=== PATIENT | female | born 1995 | race Caucasian/White ===

== ENCOUNTER → 2016-12-21 | Outpatient (CLI) | payer BC ==
[2016-12-21 10:03] LABS: Partial Thromboplastin Time 25.7 sec (22.0-30.0); Prothrombin Time 10.2 sec (9.0-12.0)
[2016-12-21 10:11] LABS: Basophils # (A) 0.1 k/uL (0-0.2); Basophils % (A) 1 %; CH 30.6; CHCM 34.1; Eosinophils # (A) 0.4 k/uL (0-0.7); Eosinophils % (A) 7 %; HCT 42.2 % (34.0-46.0); HDW 2.38; Luc # (Auto) 0.16; Luc % (Auto) 3; Lymphocytes # (A) 1.9 k/uL (1.0-4.8); Lymphocytes % (A) 32 %; MCHC 33.2 g/dL (31.0-37.0); MCV 90.2 fL (80.0-100.0); Monocytes # (A) 0.4 k/uL (0-1.0); Monocytes % (A) 7 %; Neutrophils % (A) 51 %; RBC 4.68 m/uL (3.80-5.40); RDW 13.8 % (11.5-15.5); WBC 5.9 k/uL (3.8-10.6)
[2016-12-21 10:15] LABS: ALT 48 U/L (9-52); AST 26 U/L (14-36); Alkaline Phosphatase 81 U/L (38-126); Anion Gap 12 mmol/L; Blood Urea Nitrogen 12 mg/dL (7-17); Calcium 9.7 mg/dL (8.4-10.2); Carbon Dioxide 26 mmol/L (22-30); Chloride 105 mmol/L (98-107); Cholesterol 206 mg/dL (<200); Glucose 85 mg/dL (74-99); HDL Cholesterol 66 mg/dL (40-60); Non-African American GFR(MDRD) >60 (>60 ml/min/1.73 sqM); Potassium 4.4 mmol/L (3.5-5.1); Sodium 143 mmol/L (137-145); Total Bilirubin 0.7 mg/dL (0.2-1.3); Total Protein 7.6 g/dL (6.3-8.2); Triglycerides 99 mg/dL (<150)
== END | disposition home or self-care (01) ==
LOC: LABWHC1 09:30
PROVIDERS: ATTEND Internal Medicine
DX: E28.2 Polycystic ovarian syndrome (principal); R58 Hemorrhage, not elsewhere classified
CPT/HCPCS: 36415; 80053; 80061; 84443; 85025; 85610; 85730

== ENCOUNTER → 2017-06-07 | Outpatient (CLI) | payer BC ==
[2017-06-07 11:48] LABS: HCT 36.5 % (34.0-46.0); HGB 12.1 gm/dL (11.4-16.0); MCH 30.3 pg (25.0-35.0); MCHC 33.3 g/dL (31.0-37.0); MCV 91.2 fL (80.0-100.0); Mean Platelet Volume 7.8; Platelet Count 299 k/uL (150-450); RDW 13.7 % (11.5-15.5); WBC 10.5 k/uL (3.8-10.6)
== END | disposition home or self-care (01) ==
LOC: LABWHC1 10:37
PROVIDERS: ATTEND Obstetrics & Gynecology
DX: Z34.02 Encounter for supervision of normal first pregnancy, second trimester (principal); Z3A.00 Weeks of gestation of pregnancy not specified
CPT/HCPCS: 36415; 82950; 85027

== ENCOUNTER 2017-07-22 12:27 | Inpatient (IN) | payer BC ==
--- NOTE | 2017-07-22 12:56 | ED ---
General Adult HPI - General Chief complaint: Chest Pain Stated complaint: Chest Pain Time Seen by Provider: 07/22/17 12:30 Source: patient, family, RN notes reviewed Mode of arrival: wheelchair - History of Present Illness Initial comments: This is a 21-year-old female who presents to the emergency department 32 weeks . Patient comes in complaining that she has some chest pain since this morning and it is in the center of her sternum. Patient states she's been no injury. Patient does state it seems to be worse with palpation. Patient states she's had no injury has not lifted anything heavy recently. Patient denies any shortness of breath or difficulty breathing. Patient denies any abdominal pain patient denies any vaginal discharge or bleeding. Patient denies any recent fever chills or cough. Patient states the pain is been constant since this morning nothing seems to make it worse or better except for palpating the sternum. - Related Data Home Medications Medication Instructions Recorded Confirmed Albuterol Inhaler [Ventolin Hfa 2 puff INHALATION RT-Q6H PRN 10/03/15 07/22/17 Inhaler] Iff-Blmj-Marjm Acid 1 cap PO DAILY 07/22/17 07/22/17 [-U Capsule (formulary)] Allergies Allergy/AdvReac Type Severity Reaction Status Date / Time cefuroxime axetil Allergy Unknown Verified 07/22/17 12:57 [From Ceftin] Penicillins Allergy Rash/Hives Verified 07/22/17 12:57 red dye Allergy Rash/Hives Verified 07/22/17 12:57 sulfamethoxazole Allergy Rash/Hives Verified 07/22/17 12:57 [From Septra] trimethoprim [From Septra] Allergy Rash/Hives Verified 07/22/17 12:57 doxycycline AdvReac Nausea & Verified 07/22/17 12:57 Vomiting levofloxacin [From Levaquin] AdvReac Unknown Verified 07/22/17 12:57 Review of Systems ROS Statement: Those systems with pertinent positive or pertinent negative responses have been documented in the HPI. ROS Other: All systems not noted in ROS Statement are negative. Past Medical History Past Medical History: Asthma Additional Past Medical History / Comment(s): RECURRENT RUQ PAIN. OVARIAN CYST History of Any Multi-Drug Resistant Organisms: None Reported Past Surgical History: Ear Surgery Additional Past Surgical History / Comment(s): BMT Past Anesthesia/Blood Transfusion Reactions: No Reported Reaction Past Psychological History: No Psychological Hx Reported Smoking Status: Never smoker Past Alcohol Use History: None Reported Past Drug Use History: None Reported - Past Family History Mother Family Medical History: No Reported History General Exam - General Exam Comments Initial Comments: GENERAL: Patient is well-developed and well-nourished. Patient is nontoxic and well- hydrated and is in mild distress. ENT: Neck is soft and supple. No significant lymphadenopathy is noted. Oropharynx is clear. Moist mucous membranes. Neck has full range of motion without eliciting any pain. EYES: The sclera were anicteric and conjunctiva were pink and moist. Extraocular movements were intact and pupils were equal round and reactive to light. Eyelids were unremarkable. PULMONARY: Unlabored respirations. Good breath sounds bilaterally. No audible rales rhonchi or wheezing was noted. CARDIOVASCULAR: There is a regular rate and rhythm without any murmurs gallops or rubs. Chest pain is reproducible with palpation ABDOMEN: Patient's abdomen is nontender and it is consistent with a 32 week SKIN: Skin is clear with no lesions or rashes and otherwise unremarkable. NEUROLOGIC: Patient is alert and oriented x3. Cranial nerves II through XII are grossly intact. Motor and sensory are also intact. Normal speech, volume and content. Symmetrical smile. MUSCULOSKELETAL: Normal extremities with adequate strength and full range of motion. No lower extremity swelling or edema. No calf tenderness. LYMPHATICS: No significant lymphadenopathy is noted PSYCHIATRIC: Normal psychiatric evaluation. Course Vital Signs 07/22/17 07/22/17 07/22/17 12:28 13:02 15:12 Temperature 97.6 F 97.5 F L Pulse Rate 117 H 119 H 98 Respiratory 18 18 20 Rate Blood Pressure 128/84 125/63 113/71 O2 Sat by Pulse 97 97 98 Oximetry Medical Decision Making - Medical Decision Making Patient's EKG shows a sinus tachycardia at 118 bpm MI interval 132 QRS is 70 QT interval 326 QTC is 456. Patient's EKG does have a rightward shift. Patient has S1 Q3 T3 CT of the chest was unable to determine if there was a PE secondary to poor diet. Spoke with Dr. Franco she wanted the patient admitted to Dr. Dr. Murguia he agreed to admit the patient I admitted the patient I wrote admitting orders I started the patient heparin continued on the floor I consult to Dr. Nicole consult pulmonology. - Lab Data Result diagrams: 07/22/17 13:04 07/22/17 13:04 Lab Results 07/22/17 07/22/17 07/22/17 Range/Units 13:04 13:04 13:04 WBC 10.0 (3.8-10.6) k/uL RBC 4.06 (3.80-5.40) m/uL Hgb 11.9 (11.4-16.0) gm/dL Hct 35.2 (34.0-46.0) % MCV 86.7 (80.0-100.0) fL MCH 29.3 (25.0-35.0) pg MCHC 33.8 (31.0-37.0) g/dL RDW 12.5 (11.5-15.5) % Plt Count 369 (150-450) k/uL Neutrophils % 76 % Lymphocytes % 16 % Monocytes % 5 % Eosinophils % 2 % Basophils % 0 % Neutrophils # 7.6 (1.3-7.7) k/uL Lymphocytes # 1.6 (1.0-4.8) k/uL Monocytes # 0.5 (0-1.0) k/uL Eosinophils # 0.2 (0-0.7) k/uL Basophils # 0.0 (0-0.2) k/uL Poikilocytosis Slight D-Dimer 1.38 H (<0.60) mg/L FEU Sodium 139 (137-145) mmol/L Potassium 4.0 (3.5-5.1) mmol/L Chloride 108 H (98-107) mmol/L Carbon Dioxide 20 L (22-30) mmol/L Anion Gap 11 mmol/L BUN 6 L (7-17) mg/dL Creatinine 0.40 L (0.52-1.04) mg/dL Est GFR (MDRD) Af Amer >60 (>60 ml/min/1.73 sqM) Est GFR (MDRD) Non-Af >60 (>60 ml/min/1.73 sqM) Glucose 101 H (74-99) mg/dL Calcium 8.9 (8.4-10.2) mg/dL Total Bilirubin 0.3 (0.2-1.3) mg/dL AST 26 (14-36) U/L ALT 38 (9-52) U/L Alkaline Phosphatase 166 H (38-126) U/L Total Protein 6.4 (6.3-8.2) g/dL Albumin 3.4 L (3.5-5.0) g/dL Urine Color Urine Appearance (Clear) Urine pH (5.0-8.0) Ur Specific [place] (1.001-1.035) Urine Protein (Negative) Urine Glucose (UA) (Negative) Urine Ketones (Negative) Urine Blood (Negative) Urine Nitrite (Negative) Urine Bilirubin (Negative) Urine Urobilinogen (<2.0) mg/dL Ur Leukocyte Esterase (Negative) Urine RBC (0-5) /hpf Urine WBC (0-5) /hpf Ur Squamous Epith Cells (0-4) /hpf Urine Bacteria (None) /hpf Urine Mucus (None) /hpf 07/22/17 Range/Units 13:04 WBC (3.8-10.6) k/uL RBC (3.80-5.40) m/uL Hgb (11.4-16.0) gm/dL Hct (34.0-46.0) % MCV (80.0-100.0) fL MCH (25.0-35.0) pg MCHC (31.0-37.0) g/dL RDW (11.5-15.5) % Plt Count (150-450) k/uL Neutrophils % % Lymphocytes % % Monocytes % % Eosinophils % % Basophils % % Neutrophils # (1.3-7.7) k/uL Lymphocytes # (1.0-4.8) k/uL Monocytes # (0-1.0) k/uL Eosinophils # (0-0.7) k/uL Basophils # (0-0.2) k/uL Poikilocytosis D-Dimer (<0.60) mg/L FEU Sodium (137-145) mmol/L Potassium (3.5-5.1) mmol/L Chloride (98-107) mmol/L Carbon Dioxide (22-30) mmol/L Anion Gap mmol/L BUN (7-17) mg/dL Creatinine (0.52-1.04) mg/dL Est GFR (MDRD) Af Amer (>60 ml/min/1.73 sqM) Est GFR (MDRD) Non-Af (>60 ml/min/1.73 sqM) Glucose (74-99) mg/dL Calcium (8.4-10.2) mg/dL Total Bilirubin (0.2-1.3) mg/dL AST (14-36) U/L ALT (9-52) U/L Alkaline Phosphatase (38-126) U/L Total Protein (6.3-8.2) g/dL Albumin (3.5-5.0) g/dL Urine Color Yellow Urine Appearance Cloudy H (Clear) Urine pH 6.5 (5.0-8.0) Ur Specific [place] 1.016 (1.001-1.035) Urine Protein Trace H (Negative) Urine Glucose (UA) Negative (Negative) Urine Ketones Negative (Negative) Urine Blood Negative (Negative) Urine Nitrite Negative (Negative) Urine Bilirubin Negative (Negative) Urine Urobilinogen <2.0 (<2.0) mg/dL Ur Leukocyte Esterase Small H (Negative) Urine RBC 1 (0-5) /hpf Urine WBC 4 (0-5) /hpf Ur Squamous Epith Cells 25 H (0-4) /hpf Urine Bacteria Occasional H (None) /hpf Urine Mucus Many H (None) /hpf Critical Care Time Critical Care Time: Yes Total Critical Care Time: 35 Disposition Clinical Impression: Chest pain, 32 weeks gestation of Disposition: ADMITTED IP TO THIS HOSP Referrals: Jono Blunt MD [Primary Care Provider] - 1-2 days Time of Disposition: 16:47
[2017-07-22 13:24] LABS: Basophils % (A) 0 %; Eosinophils # (A) 0.2 k/uL (0-0.7); Eosinophils % (A) 2 %; HCT 35.2 % (34.0-46.0); HGB 11.9 gm/dL (11.4-16.0); Lymphocytes # (A) 1.6 k/uL (1.0-4.8); Lymphocytes % (A) 16 %; MCH 29.3 pg (25.0-35.0); MCHC 33.8 g/dL (31.0-37.0); MCV 86.7 fL (80.0-100.0); Mean Platelet Volume 7.3; Monocytes # (A) 0.5 k/uL (0-1.0); Monocytes % (A) 5 %; Neutrophils # (A) 7.6 k/uL (1.3-7.7); Neutrophils % (A) 76 %; Platelet Count 369 k/uL (150-450); Poikilocytosis Slight; RBC 4.06 m/uL (3.80-5.40); RDW 12.5 % (11.5-15.5)
[2017-07-22 13:34] LABS: ALT 38 U/L (9-52); AST 26 U/L (14-36); Albumin 3.4 g/dL (3.5-5.0); Alkaline Phosphatase 166 U/L (38-126); Anion Gap 11 mmol/L; Blood Urea Nitrogen 6 mg/dL (7-17); Calcium 8.9 mg/dL (8.4-10.2); Carbon Dioxide 20 mmol/L (22-30); Chloride 108 mmol/L (98-107); Glucose 101 mg/dL (74-99); Sodium 139 mmol/L (137-145); Total Bilirubin 0.3 mg/dL (0.2-1.3); Total Protein 6.4 g/dL (6.3-8.2)
[2017-07-22 13:45] LABS: Appearance,Urine Cloudy (Clear); Bacteria,Urine Occasional /hpf; Bilirubin,Urine Negative (Negative); Blood,Urine Negative (Negative); Color,Urine Yellow; Glucose,Urine (UA) Negative (Negative); Ketones,Urine Negative (Negative); Leukocyte Esterase,Urine Small (Negative); Mucus,Urine Many /hpf; PH, Urine 6.5 (5.0-8.0); Protein,Urine Trace (Negative); RBC,Urine 1 /hpf (0-5); Specific Gravity,Urine 1.016 (1.001-1.035); Squamous Epithelial Cell,Urine 25 /hpf (0-4); Urobilinogen,Urine <2.0 mg/dL (<2.0); WBC,Urine 4 /hpf (0-5)
[2017-07-22] MEDS ORDERED: RX INFO: IV CONTRAST WAS GIVEN 1 EACH MISC MISCELLANE PRN (14:08)
--- NOTE | 2017-07-22 15:12 | CT ---
EXAMINATION TYPE: CT chest angio for PE DATE OF EXAM: 07/22/2017 COMPARISON: NONE HISTORY: 21-year-old female with chest pain TECHNIQUE: Contiguous axial scanning of the chest performed with IV Contrast, patient injected with 1 00ml mL of Omnipaque 350. Coronal/sagittal MIP reconstructions performed. CT DLP: 395.4 mGycm Automated exposure control for dose reduction was used. FINDINGS: Heart is normal size without pericardial effusion. No reflux of contrast into the hepatic veins. Aorta is normal caliber. Some residual thymic tissue in the anterior mediastinum. No thoracic lymphadenopathy by CT size crite neto. Suboptimal opacification of the pulmonary arterial system. The degree of opacification is nondiagnost ic for assessment of pulmonary emboli. 4 mm triangular nodule peripheral right major fissure at the right mid to lower lung suggestive of a subpleural lymph node. No consolidation or pleural effusion. Shielding artifact in the upper abdomen. Bones: No osseous destructive process. IMPRESSION: UNFORTUNATELY, NONDIAGNOSTIC STUDY FOR ASSESSMENT OF PULMONARY EMBOLUS. NO ACUTE PULMONARY PROCESS.
[2017-07-22] MEDS ORDERED: HEPARIN SODIUM,PORCINE 10,000 UNIT/ML 1 ML VIAL IV ONE (16:47)
[2017-07-22] MEDS ORDERED: SODIUM CHLORIDE 0.9% 1,000 ML IV ONE (16:48)
[2017-07-22] MEDS: HEPARIN SOD,PORK IN 0.45% NACL 25,000 UNIT in 0.45% NACL 1 500ML.BAG IV SCH (17:35)
[2017-07-22 18:32] VITALS: BMI 32.3
[2017-07-22] MEDS ORDERED: ALBUTEROL NEBULIZED 2.5 MG/3 ML INHALATION PRN (22:55)
--- NOTE | 2017-07-22 23:29 | HP ---
HISTORY AND PHYSICAL DATE OF ADMISSION: July 22, 2017. PRESENTING COMPLAINT: Short of breath. HISTORY OF PRESENTING COMPLAINT: This is a pleasant 21 -year-old patient of Dr. Blunt. The patient has had asthma as a child, but only really exercise induced, hard to use inhalers. The patient is now 32 weeks and for 1 week has noticed that the legs have been swelling up. She really has not been much short of breath, except she said her parents noted that she was getting more short of breath and decided to come into the ER. Denies any cough. No fever. Patient is a not a smoker. Denies any fever. In the ER, patient did get a CT scan of the chest, but the study was inadequate. The patient is put on IV heparin and admitted. Dr. Franco, the patient's director medical economics was consulted, so was Dr. Moya from Pulmonary. The patient is currently lying in bed, rather comfortable. REVIEW OF SYSTEMS: CONSTITUTIONAL: None. HEENT none. Respiratory as above. Cardiovascular none. Gastrointestinal none. Genitourinary: None. Musculoskeletal: None. Dermatological and hematologic, lymphatic none. Psychiatry none. Neurological none. PAST MEDICAL HISTORY: Past medical history of childhood asthma, ovarian cyst. PAST SURGICAL HISTORY: Cholecystectomy, ears surgery, wisdom teeth removed. SOCIAL HISTORY: The patient lives with her Tommy. Does not smoke or drink alcohol. Works as a of body shop. FAMILY HISTORY: Of hypertension, rheumatoid arthritis. Patient does not smoke or drink alcohol. Denies use of recreational drugs. HOME MEDICATIONS: multivitamins 1 capsule p.o. daily and Ventolin a inhaler p.r.n. ALLERGIES: TO CEFTIN, PENICILLIN, RED DYE, BACTRIM, DOXYCYCLINE, LEVAQUIN. PHYSICAL EXAMINATION: Vital signs on presentation: Temperature 97.6, pulse 117, respirations 18, blood pressure 120/84, pulse ox 97% on room air. General appearance: Well built BMI 32.3 lying in bed, comfortable. Eyes pupils equal. Conjunctivae normal. HEENT: External appearance of nose, ears normal. Oral cavity normal. Neck JVD not raised. Mass not palpable. Respiratory effort normal. Lungs are clear. Cardiovascular 1st and second sounds normal. Mild edema. Abdomen distended. No tenderness. Liver and spleen not palpable. examination not done. LYMPHATIC: No lymph palpable in lymph node palpable. PSYCHIATRY: Alert and oriented x3. Mood and affect normal. Neurological: Pupils equal. Cranial nerves grossly intact. Power and sensation grossly intact. INVESTIGATIONS: White count 10, hemoglobin 11.9, potassium 4, BUN 6, creatinine 0.40. Chest CTA is inadequate study but for that study did not report any PE. EKG shows sinus tachycardia. ASSESSMENT: 1. This is a patient who is 32 weeks with her 1st child presents with swelling in the lower extremity, some shortness of breath. The patient's D-dimer was 1.38. CT scan inconclusive, cannot rule out PE. Pulmonary was consulted. 2. IV heparin monitoring. 3. First of 32 weeks of age. PLAN: The patient is currently put on IV heparin. We will order a Doppler ultrasound of the thighs. Get opinion from Pulmonary. Care was discussed with the patient. Copy to Dr. Blunt. MMERICK / TY: [id number] /
[2017-07-23] MEDS ORDERED: HEPARIN SODIUM,PORCINE 5,000 UNIT/ML 1 ML VIAL IV PRN (01:21)
[2017-07-23] MEDS: HEPARIN SOD,PORK IN 0.45% NACL 25,000 UNIT in 0.45% NACL 1 500ML.BAG IV SCH ×2 (06:53→23:10)
--- NOTE | 2017-07-23 08:44 | US ---
EXAMINATION TYPE: US venous doppler duplex LE BI DATE OF EXAM: 07/23/2017 7:53 AM COMPARISON: CT CLINICAL HISTORY: r/o dvt. Pt states recent swelling and chest pain/ pt approx 32 weeks / cur rently on Heparin drip SIDE PERFORMED: Bilateral TECHNIQUE: The lower extremity deep venous system is examined utilizing real time linear array sonog baron with graded compression, doppler sonography and color-flow sonography. VESSELS IMAGED: External Iliac Vein (EIV) Common Femoral Vein Deep Femoral Vein Greater Saphenous Vein * Femoral Vein Popliteal Vein Small Saphenous Vein * Proximal Calf Veins (* superficial vessels) Right Leg: Negative for DVT Left Leg: Negative for DVT IMPRESSION: Grayscale, color doppler, spectral doppler imaging performed of the deep veins of the lo wer extremities. There is normal flow, compressibility, vascular waveforms. No evident deep venous thrombosis at or above the knees.
--- NOTE | 2017-07-23 08:54 | P.OBCN ---
History of Present Illness Consult date: 07/23/17 Requesting physician: Nadir Murguia Reason for consult: other ( complicated by possible pulmonary embolism) Chief complaint: Leg swelling and chest pressure History of present illness: This is a 21-year-old female 1 para 0 with an estimated date of confinement of 09/17/2017, estimated gestational age of 31-6/7 weeks, who presented to the emergency room yesterday complaining of swelling in her legs off and on for about a week. She stated that other people around her were telling her that she looked short of breath and that she looked like she was struggling to breathe. She didn't notice any shortness of breath herself. She did say that she felt like she had a pressure over her chest like a cat was sitting on her chest. She admits to good movement and denies any vaginal bleeding or cramping. Obstetrical history: . Review of Systems Constitutional: Denies chills, Denies fever Eyes: denies blurred vision, denies pain Cardiovascular: Reports chest pain (Pressure over her chest), Reports leg edema , Reports shortness of breath Respiratory: Denies cough Gastrointestinal: Denies abdominal pain, Denies diarrhea, Denies nausea, Denies vomiting Genitourinary: Reports , Denies pelvic pain Musculoskeletal: Reports low back pain (Occasional) Neurological: Denies numbness, Denies weakness Psychiatric: Denies anxiety, Denies depression Past Medical History Past Medical History: Asthma Additional Past Medical History / Comment(s): RECURRENT RUQ PAIN-resolved,hx of lap gabriela. OVARIAN CYST History of Any Multi-Drug Resistant Organisms: None Reported Past Surgical History: Cholecystectomy, Ear Surgery Additional Past Surgical History / Comment(s): wisdom teeth removed 2013 Past Anesthesia/Blood Transfusion Reactions: No Reported Reaction Past Psychological History: No Psychological Hx Reported Smoking Status: Never smoker Past Alcohol Use History: None Reported Past Drug Use History: None Reported - Past Family History Father Family Medical History: Diabetes Mellitus, Hyperlipidemia, Hypertension Mother Family Medical History: Hypertension, Rheumatoid Arthritis (RA) Medications and Allergies Home Medications Medication Instructions Recorded Confirmed Type Albuterol Inhaler [Ventolin Hfa 2 puff INHALATION RT-Q6H PRN 10/03/15 07/22/17 History Inhaler] Yuk-Srrr-Dcjti Acid 1 cap PO DAILY 07/22/17 07/22/17 History [-U Capsule (formulary)] Allergies Allergy/AdvReac Type Severity Reaction Status Date / Time cefuroxime axetil Allergy Unknown Verified 07/22/17 12:57 [From Ceftin] Penicillins Allergy Rash/Hives Verified 07/22/17 12:57 red dye Allergy Rash/Hives Verified 07/22/17 12:57 sulfamethoxazole Allergy Rash/Hives Verified 07/22/17 12:57 [From Septra] trimethoprim [From Septra] Allergy Rash/Hives Verified 07/22/17 12:57 doxycycline AdvReac Nausea & Verified 07/22/17 12:57 Vomiting levofloxacin [From Levaquin] AdvReac Unknown Verified 07/22/17 12:57 Exam Osteopathic Statement: *. No significant issues noted on an osteopathic structural exam other than those noted in the History and Physical/Consult. - Vital Signs Vital signs: Vital Signs Temp Pulse Pulse Resp BP BP Pulse Ox 07/23/17 04:00 98.2 F 81 18 110/69 100 07/23/17 00:10 98.1 F 76 17 107/55 100 07/22/17 20:10 97.7 F 92 18 108/67 100 07/22/17 18:30 98.1 F 104 H 16 125/90 97 07/22/17 17:27 98.4 F 67 16 104/64 98 07/22/17 15:12 98 20 113/71 98 07/22/17 13:02 97.5 F L 119 H 18 125/63 97 07/22/17 12:28 97.6 F 117 H 18 128/84 97 Intake and Output 07/22/17 07/23/17 07/23/17 22:59 06:59 14:59 Intake Total 180 538.208 9455 Output Total 250 400 300 Balance -70 53.726 1140 Intake: Intake, IV Titration 345.165 5031 Amount Heparin Sod,Pork in 0.45% 453.726 NaCl 25,000 unit In 0.45 % NaCl 1 500ml.bag @ 18 UNITS/KG/HR 32.65 mls/hr IV .[id number] [facility] Rx#: [id number] Sodium Chloride 0.9% 1, 1200 000 ml @ 100 mls/hr IV . Q10H ONE Rx#:[id number] Oral 180 240 Output: Urine 250 400 300 Other: Voiding Method Toilet Toilet # Voids 1 2 1 # Bowel Movements 1 Weight 90.7 kg 92.7 kg Gen.: Well-developed well-nourished gravid female in no acute distress HEENT: Within normal limits Lungs: Clear to auscultation bilaterally Abdomen: , nontender Extremities: Negative Homans and trace edema bilaterally. Results Result Diagrams: 07/22/17 13:04 07/22/17 13:04 Abnormal Lab Results - Last 24 Hours (Table) 07/22/17 07/22/17 07/22/17 Range/Units 13:04 13:04 13:04 APTT (22.0-30.0) sec D-Dimer 1.38 H (<0.60) mg/L FEU Chloride 108 H (98-107) mmol/L Carbon Dioxide 20 L (22-30) mmol/L BUN 6 L (7-17) mg/dL Creatinine 0.40 L (0.52-1.04) mg/dL Glucose 101 H (74-99) mg/dL Alkaline Phosphatase 166 H (38-126) U/L Albumin 3.4 L (3.5-5.0) g/dL Urine Appearance Cloudy H (Clear) Urine Protein Trace H (Negative) Ur Leukocyte Esterase Small H (Negative) Ur Squamous Epith Cells 25 H (0-4) /hpf Urine Bacteria Occasional H (None) /hpf Urine Mucus Many H (None) /hpf 07/22/17 07/23/17 Range/Units 23:24 05:38 APTT 44.0 H 64.8 H (22.0-30.0) sec D-Dimer (<0.60) mg/L FEU Chloride (98-107) mmol/L Carbon Dioxide (22-30) mmol/L BUN (7-17) mg/dL Creatinine (0.52-1.04) mg/dL Glucose (74-99) mg/dL Alkaline Phosphatase (38-126) U/L Albumin (3.5-5.0) g/dL Urine Appearance (Clear) Urine Protein (Negative) Ur Leukocyte Esterase (Negative) Ur Squamous Epith Cells (0-4) /hpf Urine Bacteria (None) /hpf Urine Mucus (None) /hpf Assessment and Plan (1) 32 weeks gestation of Narrative/Plan: Intrauterine at 31-6/7 weeks Current Visit: Yes Status: Acute Code(s): Z3A.32 - 32 WEEKS GESTATION OF SNOMED Code(s): 2244723 (2) Chest pain Narrative/Plan: Inconclusive computed tomography scan, cannot rule out pulmonary embolism Current Visit: Yes Status: Acute Code(s): R07.9 - CHEST PAIN, UNSPECIFIED SNOMED Code(s): 20672832 Plan: Will defer to pulmonology regarding heparin management and more conclusive diagnosis for pulmonary embolism. I've advised her while she is in the hospital that she should have Venodyne stockings while she is in bed and will perform nonstress test daily while she is in the hospital. Will follow with you.
[2017-07-23] MEDS: PRENATAL VIT-IRON-FOLIC ACID 1 EACH CAP PO SCH (09:22)
--- NOTE | 2017-07-23 10:27 | ECHOF ---
Referral Reason:sob MEASUREMENTS -------- HEIGHT: 165.1 cm WEIGHT: 92.5 kg BP: 110/69 RVIDd: 2.8 cm (< 3.3) IVSd: 1.0 cm (0.6 - 1.1) LVIDd: 3.9 cm (3.9 - 5.3) LVPWd: 1.0 cm (0.6 - 1.1) IVSs: 1.1 cm LVIDs: 3.2 cm LVPWs: 1.2 cm LAESV Index (A-L): 15.01 ml/m Ao Diam: 2.8 cm (2.0 - 3.7) AV Cusp: 1.9 cm (1.5 - 2.6) LA Diam: 2.6 cm (2.7 - 3.8) MV EXCURSION: 21.475 mm (> 18.000) MV EF SLOPE: 65 mm/s (70 - 150) EPSS: 0.5 cm MV E Gabe: 0.61 m/s MV DecT: 280 ms MV A Gabe: 0.64 m/s MV E/A Ratio: 0.95 RAP: 5.00 mmHg RVSP: 15.14 mmHg FINDINGS -------- Sinus rhythm. This was a technically good study. LV size, wall thickness and systolic function are normal, with an EF greater than 55%. The left nancy tricular size is normal. The right ventricle is mildly enlarged. The right atrial size is normal. The aortic valve is trileaflet, and appears structurally normal. No aortic stenosis or regurgitation. Mild mitral annular calcification present. Mild mitral regurgitation is present. [id number] tricuspid regurgitation present. There is no evidence of pulmonary hypertension. The right ventricular systolic pressure, as measured by Doppler, is 15.14mmHg. Trace/mild (physiologic) pulmonic regurgitation. The aortic root size is normal. There is no pericardial effusion. CONCLUSIONS -------- 1. LV size, wall thickness and systolic function are normal, with an EF greater than 55%. 2. The left ventricular size is normal. 3. The right ventricle is mildly enlarged. 4. The aortic valve is trileaflet, and appears structurally normal. No aortic stenosis or regurgitati on. 5. Mild mitral annular calcification present. 6. Mild mitral regurgitation is present. 7. [id number]-hq-fxihfqty tricuspid regurgitation present. 8. There is no evidence of pulmonary hypertension. 9. The right ventricular systolic pressure, as measured by Doppler, is 15.14mmHg. 10. Trace/mild (physiologic) pulmonic regurgitation. 11. The aortic root size is normal. 12. There is no pericardial effusion. ONLINE MEDIA BUYER: Mariaelena Agosto RDCS
[2017-07-23] MEDS ORDERED: RX INFO: IV CONTRAST WAS GIVEN 1 EACH MISC MISCELLANE PRN (10:57)
--- NOTE | 2017-07-23 11:56 | P.CNPUL ---
History of Present Illness Consult date: 07/23/17 Requesting physician: Nadir Murguia Reason for consult: dyspnea, chest pain Chief complaint: Chest pain and shortness of breath History of present illness: This is a very pleasant 21-year-old female patient who follows with Dr. Jono Blunt as her primary care physician. She has a history of exercise-induced mild intermittent asthma and is also 32 weeks . She presented here yesterday with complaints of midsternal chest discomfort. Started yesterday morning. There is no relieving factors, no aggravating factors. No significant shortness of breath according to the patient however her mother and had noted that she appeared to be more short of breath with activity. No hemoptysis. She has been maintaining O2 saturations up to the 100% on room air. She's been afebrile. Hemodynamically stable. D-dimer 1.[address] angiogram is nondiagnostic for pulmonary embolus. There is no acute pulmonary process. Doppler of the lower extremities are negative for DVT. Echocardiogram revealed a preserved left ventricular systolic function with ejection fraction greater than 55%. There is mild to moderate tricuspid regurgitation noted. No pulmonary hypertension. Right ventricle is mildly enlarged. She is seen today in consultation on the selective care unit. A heparin drip has been initiated. She is awake and alert in no acute distress. The chest discomfort has subsided somewhat today as compared to yesterday. She continues to deny any worsening shortness of breath unless up with activity. Review of Systems Eyes: denies blurred vision, denies decreased vision Ears: deny: decreased hearing Ears, nose, mouth and throat: Denies headache, Denies sore throat Cardiovascular: Reports chest pain, Reports shortness of breath Respiratory: Reports dyspnea Gastrointestinal: Denies abdominal pain, Denies diarrhea, Denies nausea, Denies vomiting Genitourinary: Denies dysuria, Denies hematuria Musculoskeletal: Denies myalgias Integumentary: Denies pruritus, Denies rash Neurological: Denies numbness, Denies weakness Psychiatric: Denies anxiety, Denies depression Endocrine: Reports weight change, Denies fatigue Past Medical History Past Medical History: Asthma Additional Past Medical History / Comment(s): RECURRENT RUQ PAIN-resolved,hx of lap gabriela. OVARIAN CYST History of Any Multi-Drug Resistant Organisms: None Reported Past Surgical History: Cholecystectomy, Ear Surgery Additional Past Surgical History / Comment(s): wisdom teeth removed 2014 Past Anesthesia/Blood Transfusion Reactions: No Reported Reaction Past Psychological History: No Psychological Hx Reported Smoking Status: Never smoker Past Alcohol Use History: None Reported Past Drug Use History: None Reported - Past Family History Father Family Medical History: Diabetes Mellitus, Hyperlipidemia, Hypertension Mother Family Medical History: Hypertension, Rheumatoid Arthritis (RA) Medications and Allergies Home Medications Medication Instructions Recorded Confirmed Type Albuterol Inhaler [Ventolin Hfa 2 puff INHALATION RT-Q6H PRN 10/03/15 07/22/17 History Inhaler] Pii-Kwzq-Fnhmi Acid 1 cap PO DAILY 07/22/17 07/22/17 History [-U Capsule (formulary)] Allergies Allergy/AdvReac Type Severity Reaction Status Date / Time cefuroxime axetil Allergy Unknown Verified 07/22/17 12:57 [From Ceftin] Penicillins Allergy Rash/Hives Verified 07/22/17 12:57 red dye Allergy Rash/Hives Verified 07/22/17 12:57 sulfamethoxazole Allergy Rash/Hives Verified 07/22/17 12:57 [From Septra] trimethoprim [From Septra] Allergy Rash/Hives Verified 07/22/17 12:57 doxycycline AdvReac Nausea & Verified 07/22/17 12:57 Vomiting levofloxacin [From Levaquin] AdvReac Unknown Verified 07/22/17 12:57 Physical Exam Vitals: Vital Signs Temp Pulse Pulse Resp BP BP Pulse Ox 07/23/17 11:39 105 H 20 07/23/17 11:28 98.0 F 105 H 20 108/79 95 07/23/17 08:00 98.1 F 103 H 20 124/79 96 07/23/17 04:00 98.2 F 81 18 110/69 100 07/23/17 00:10 98.1 F 76 17 107/55 100 07/22/17 20:10 97.7 F 92 18 108/67 100 07/22/17 18:30 98.1 F 104 H 16 125/90 97 07/22/17 17:27 98.4 F 67 16 104/64 98 07/22/17 15:12 98 20 113/71 98 07/22/17 13:02 97.5 F L 119 H 18 125/63 97 07/22/17 12:28 97.6 F 117 H 18 128/84 97 Intake and Output 07/22/17 07/23/17 07/23/17 22:59 06:59 14:59 Intake Total 180 305.151 5515 Output Total 250 400 800 Balance -70 53.726 640 Intake: Intake, IV Titration 152.765 9829 Amount Heparin Sod,Pork in 0.45% 453.726 NaCl 25,000 unit In 0.45 % NaCl 1 500ml.bag @ 18 UNITS/KG/HR 32.65 mls/hr IV .[id number] [facility] Rx#: [id number] Sodium Chloride 0.9% 1, 1200 000 ml @ 100 mls/hr IV . Q10H ONE Rx#:[id number] Oral 180 240 Output: Urine 250 400 800 Other: Voiding Method Toilet Toilet Toilet # Voids 1 2 1 # Bowel Movements 1 Weight 90.7 kg 92.7 kg GENERAL EXAM: Alert, active, comfortable in no apparent distress. HEAD: Normocephalic. EYES: Normal reaction of pupils, equal size. NOSE: Clear with pink turbinates. THROAT: No erythema or exudates. NECK: No masses, no JVD. CHEST: No chest wall deformity. LUNGS: Equal air entry with no crackles, wheeze, rhonchi or dullness. CVS: S1 and S2 normal with no audible murmur, regular rhythm. ABDOMEN: 32 weeks gestation, normal bowel sounds, no guarding or rigidity. SPINE: No scoliosis or deformity SKIN: No rashes CENTRAL NERVOUS SYSTEM: No focal deficits, tone is normal in all 4 extremities. EXTREMITIES: There is no peripheral edema. No clubbing, no cyanosis. Peripheral pulses are intact. Results - Laboratory Findings CBC and BMP: 07/22/17 13:04 07/22/17 13:04 PT/INR, D-dimer D-Dimer 1.38 mg/L FEU (<0.60) H 07/22/17 13:04 Abnormal lab findings: Abnormal Labs 07/22/17 07/22/17 07/22/17 13:04 13:04 13:04 APTT D-Dimer 1.38 H Chloride 108 H Carbon Dioxide 20 L BUN 6 L Creatinine 0.40 L Glucose 101 H Alkaline Phosphatase 166 H Albumin 3.4 L Urine Appearance Cloudy H Urine Protein Trace H Ur Leukocyte Esterase Small H Ur Squamous Epith Cells 25 H Urine Bacteria Occasional H Urine Mucus Many H 07/22/17 07/23/17 23:24 05:38 APTT 44.0 H 64.8 H D-Dimer Chloride Carbon Dioxide BUN Creatinine Glucose Alkaline Phosphatase Albumin Urine Appearance Urine Protein Ur Leukocyte Esterase Ur Squamous Epith Cells Urine Bacteria Urine Mucus - Diagnostic Findings CT scan - chest: image reviewed (Nondiagnostic ) Assessment and Plan Assessment: Impression: #1 Chest pain of unclear etiology. Pulmonary embolism is not excluded on CT angiogram. Currently on a heparin drip. #2 History of mild intermittent exercise-induced asthma. On albuterol in the outpatient setting. #3 32 weeks gestation. Plan: The patient was seen and evaluated by Dr. Moya. Her CAT scan and labs were reviewed. Doppler lower extremities are negative. Echocardiogram reviewed. The patient would benefit from a repeat computed tomography angiogram to rule out or rule in pulmonary embolism to determine if she needs any anticoagulants are not. The patient and her family are concerned and will be agreeable to a CT angiogram after another 24 hours of fluid resuscitation and deficits cleared by OB. If not she will need to be treated with Lovenox until the of her baby and then an additional 3-6 months with oral anticoagulants. In the interim , we'll continue with heparin drip for now. We'll repeat BUN and creatinine in the a.m. Continue 0.9 normal saline at 50 MLS per hour. We will continue to follow and make further recommendations based on her clinical status. I, the cosigning physician, performed a history & physical examination of the patient. Lungs sounds are clear. Maintaining good O2 saturations in the 90s on room air. I discussed the assessment and plan of care with my nurse practitioner, Leena Moss. I attest to the above consultation as dictated by her. Time with Patient: Greater than 30
[2017-07-23] MEDS: SODIUM CHLORIDE 0.9% 1,000 ML IV SCH ×2 (13:46→19:49)
--- NOTE | 2017-07-23 16:14 | PN ---
PROGRESS NOTE DATE OF SERVICE: 07/23/2017 PRESENTING COMPLAINT: Short of breath. INTERVAL HISTORY: This is a 21-year-old patient who presented with shortness of breath. Initial CT is inconclusive. On IV heparin. Breathing is stable. REVIEW OF SYSTEMS: Done for constitutional, cardiovascular, GI, pulmonary; relevant findings as above. CURRENT MEDICATIONS: Reviewed. They include IV heparin. PHYSICAL EXAMINATION: Temperature 98, pulse 105, respiration 20, blood pressure 108/79, pulse ox 95% on room air. GENERAL APPEARANCE: Lying in bed. Comfortable. EYES: Pupils equal. Conjunctivae normal. HEENT: External appearance of nose and ears normal. Oral cavity normal. NECK: JVD not raised. Mass not palpable. RESPIRATORY: Effort normal. LUNGS: Fair air entry. CARDIOVASCULAR: First and second sounds normal. No edema. ABDOMEN: Distended. Liver and spleen not palpable. PSYCH: Alert and oriented x3. Mood and affect normal. INVESTIGATIONS: PTT noted. Doppler ultrasound of lower extremity negative. ASSESSMENT: 1. Nurebc-ovj-rckt-old with 32-week intrauterine . 2. Intravenous heparin monitoring. 3. Lower extremity swelling and shortness of breath on presentation. Patient needs to have repeat CT scan of the chest to rule out PE. PLAN: Did have a lengthy talk with the patient and her mother. There is always some risk with IV contrast and exposure, but on the flip side, if the test is not done, patient empirically will have to be treated for at least 3 months of treatment for PE. At this point, the patient and her mother would like to proceed to have a repeat CT scan done. Also discussed with Dr. Moya. NIRAV / TY: [id number] /
[2017-07-24 04:40] VITALS: RESP 18
[2017-07-24] MEDS: SODIUM CHLORIDE 0.9% 1,000 ML IV SCH ×2 (06:35→12:10)
[2017-07-24 07:28] LABS: HCT 33.1 % (34.0-46.0); HGB 10.8 gm/dL (11.4-16.0); Hypochromasia Slight; MCH 28.6 pg (25.0-35.0); MCHC 32.4 g/dL (31.0-37.0); MCV 88.2 fL (80.0-100.0); Mean Platelet Volume 7.9; Platelet Count 267 k/uL (150-450); RBC 3.76 m/uL (3.80-5.40); RDW 12.8 % (11.5-15.5); WBC 8.5 k/uL (3.8-10.6)
[2017-07-24 08:03] LABS: Anion Gap 6 mmol/L; Blood Urea Nitrogen 4 mg/dL (7-17); Calcium 8.5 mg/dL (8.4-10.2); Carbon Dioxide 21 mmol/L (22-30); Chloride 111 mmol/L (98-107); Glucose 75 mg/dL (74-99); Sodium 138 mmol/L (137-145)
[2017-07-24] MEDS: PRENATAL VIT-IRON-FOLIC ACID 1 EACH CAP PO SCH (08:06)
[2017-07-24] MEDS: HEPARIN SOD,PORK IN 0.45% NACL 25,000 UNIT in 0.45% NACL 1 500ML.BAG IV SCH (08:07)
[2017-07-24 08:23] VITALS: TEMP 97.1
--- NOTE | 2017-07-24 08:52 | P.PN ---
Progress Note - Text Progress Note Date: 07/24/17 Patient denies any shortness of breath or chest pain today. She did wake up with some nasal congestion this morning due to her room being cold last night. She admits to good movement and denies any complaints. She denies any calf tenderness. I did review with the patient and her mother the importance of repeating the computed tomography scan to rule out pulmonary embolism. I've advised her that it is best to have a firm diagnosis before continuing with treatment on heparin. If it is confirmed that she does not have a pulmonary embolism, she most likely could be discharged home today and follow-up with me in the office next week. I've advised her that she could return to her normal activities including work upon discharge. I will continue to follow with you. Thank you.
--- NOTE | 2017-07-24 10:36 | CT ---
EXAMINATION TYPE: CT angio chest DATE OF EXAM: 07/24/2017 COMPARISON: 07/22/2017 HISTORY: Patient has no new complaints at time of study. PE. Exam repeated secondary to poor opacifi cation of the pulmonary arteries and tributaries on 07/22/2017 CT DLP: 281.2 mGycm CONTRAST: CT chest with contrast and 3D reconstruction with MIP imaging is performed with IV Contrast, patient injected with 100 mL of Omnipaque 350. Contrast-enhanced CT of the chest was performed through the course of the pulmonary arteries with shani g and mediastinal window settings submitted. 3D reconstruction with MIP imaging was also performed. PULMONARY ARTERIES: Again examination is felt to be suboptimal for exclusion of pulmonary embolism gi nancy poor opacification of the pulmonary arteries and major tributaries. Several small focal areas of decreased attenuation are seen within the pulmonary arteries and therefore I cannot exclude pulmonary embolism at this time. LUNGS: The lungs are clear and free of infiltrate. No evidence for atelectasis. No pulmonary nodule or mass is detected. No pleural effusion. MEDIASTINUM: Thoracic aorta is of normal caliber,however, evaluation is limited given timing of the contrast bolus. If there is concern for thoracic aortic pathology consider PRISCILLA. Correlate clinicall y . The heart is not enlarged. No evidence for mediastinal mass. No mediastinal lymph nodes greater than 1cm. HILAR STRUCTURES: No evidence for mass. No hilar lymph nodes greater than 1 cm. UPPER ABDOMEN: No significant abnormality is seen. IMPRESSION: 1. Again examination is felt to be suboptimal for exclusion of pulmonary embolism given poor opacifi cation of the pulmonary arteries and major tributaries. Several small focal areas of decreased attenu ation are seen within the pulmonary arteries and therefore I cannot exclude pulmonary embolism at thi s time.
[2017-07-24 10:56] VITALS: BP 126/82; PULSE 106
--- NOTE | 2017-07-24 11:56 | P.PN ---
Subjective Progress Note Date: 07/24/17 Principal diagnosis: This is a very pleasant 21-year-old female patient who follows with Dr. Jono Blunt as her primary care physician. She has a history of exercise-induced mild intermittent asthma and is also 32 weeks . She presented here yesterday with complaints of midsternal chest discomfort. Started yesterday morning. There is no relieving factors, no aggravating factors. No significant shortness of breath according to the patient however her mother and had noted that she appeared to be more short of breath with activity. No hemoptysis. She has been maintaining O2 saturations up to the 100% on room air. She's been afebrile. Hemodynamically stable. D-dimer 1.[address] angiogram is nondiagnostic for pulmonary embolus. There is no acute pulmonary process. Doppler of the lower extremities are negative for DVT. Echocardiogram revealed a preserved left ventricular systolic function with ejection fraction greater than 55%. There is mild to moderate tricuspid regurgitation noted. No pulmonary hypertension. Right ventricle is mildly enlarged. She is seen today in consultation on the selective care unit. A heparin drip has been initiated. She is awake and alert in no acute distress. The chest discomfort has subsided somewhat today as compared to yesterday. She continues to deny any worsening shortness of breath unless up with activity. The patient is seen again today 07/24/2017 in follow-up. She did have us repeat CT angiogram that was again somewhat inconclusive but pulmonary emboli could not be ruled out. She remains on heparin drip. She denies any worsening shortness of breath, cough or congestion. No hemoptysis. She is maintaining good O2 saturations in the upper 90s on room air. She's been afebrile. Hemodynamically stable. Objective - Vital Signs Vital signs: Vital Signs Temp 97.1 F L 07/24/17 10:55 Pulse 106 H 07/24/17 10:55 Resp 18 07/24/17 10:55 BP 126/82 07/24/17 10:55 Pulse Ox 96 07/24/17 10:55 Intake & Output 07/23/17 07/24/17 07/24/17 18:59 06:59 18:59 Intake Total 2038 1615 1059.706 Output Total 3300 500 Balance -1262 1615 559.706 Weight 92.7 kg Intake: Intake, IV Titration 1200 1375 699.706 Amount Heparin Sod,Pork in 0.45% 500 324.706 NaCl 25,000 unit In 0.45 % NaCl 1 500ml.bag @ 18 UNITS/KG/HR 32.65 mls/hr IV .[id number] [facility] Rx#: [id number] Sodium Chloride 0.9% 1, 1200 000 ml @ 100 mls/hr IV . Q10H ONE Rx#:[id number] Sodium Chloride 0.9% 1, 875 375 000 ml @ 125 mls/hr IV . Q8H [facility] Rx#:[id number] Oral 838 240 360 Output: Urine 3300 500 Other: Voiding Method Toilet Toilet Toilet # Voids 3 3 1 - Exam GENERAL EXAM: Alert, active, comfortable in no apparent distress. HEAD: Normocephalic. EYES: Normal reaction of pupils, equal size. NOSE: Clear with pink turbinates. THROAT: No erythema or exudates. NECK: No masses, no JVD. CHEST: No chest wall deformity. LUNGS: Equal air entry with no crackles, wheeze, rhonchi or dullness. CVS: S1 and S2 normal with no audible murmur, regular rhythm. ABDOMEN: Distended due to , normal bowel sounds, no guarding or rigidity. SPINE: No scoliosis or deformity SKIN: No rashes CENTRAL NERVOUS SYSTEM: No focal deficits, tone is normal in all 4 extremities. EXTREMITIES: There is no peripheral edema. No clubbing, no cyanosis. Peripheral pulses are intact. - Labs CBC & Chem 7: 07/24/17 05:22 07/24/17 05:22 Labs: Abnormal Lab Results - Last 24 Hours (Table) 07/24/17 07/24/17 07/24/17 Range/Units 05:22 05:22 05:22 RBC 3.76 L (3.80-5.40) m/uL Hgb 10.8 L (11.4-16.0) gm/dL Hct 33.1 L (34.0-46.0) % APTT 52.0 H (22.0-30.0) sec Chloride 111 H (98-107) mmol/L Carbon Dioxide 21 L (22-30) mmol/L BUN 4 L (7-17) mg/dL Creatinine 0.45 L (0.52-1.04) mg/dL Assessment and Plan Assessment: Impression: #1 Chest pain of unclear etiology. Pulmonary embolism is not excluded on CT angiogram. Currently on a heparin drip. A follow-up CT angiogram again could not rule out possible pulmonary embolism. She'll be transitioned to Lovenox. #2 History of mild intermittent exercise-induced asthma. On albuterol in the outpatient setting. #3 32 weeks gestation. Plan: The patient was seen and evaluated by Dr. Moya. Her second CAT scan was reviewed. We'll transition the patient to Lovenox 60 mg subcutaneous every 12 hours. She is cleared for discharge from the pulmonary standpoint. To be treated with Lovenox until the of her baby and then an additional 3 months with oral anticoagulants. She will follow-up in our office post delivery. She and her mother are encouraged to call sooner with any recurrence of symptoms or other questions or concerns. I, the cosigning physician, performed a history & physical examination of the patient. Lungs sounds are clear. Maintaining good O2 saturations in the 90s on room air. I discussed the assessment and plan of care with my nurse practitioner, Leena Moss. I attest to the above consultation as dictated by her.
[2017-07-24] MEDS ORDERED: ENOXAPARIN 60 MG/0.6 ML SYRINGE SQ SCH ×2 (12:00→21:00)
[2017-07-24] MEDS ORDERED: ENOXAPARIN 100 MG/ML SYRINGE SQ SCH (21:00)
--- NOTE | 2017-07-28 00:30 | DS ---
DISCHARGE SUMMARY DATE OF SERVICE: July 22, 2017. DATE OF DISCHARGE: July 24, 2017. FINAL DIAGNOSES: 1. Possible pulmonary embolism. 2. 32 week intrauterine uncomplicated. 3. IV heparin monitoring. HOSPITAL COURSE: This is a very pleasant patient 32 weeks , present with some swelling of lower extremity, short of breath. Initial CT scan was inconclusive. The patient did have a venous Doppler study and echocardiogram unremarkable. Repeat chest CTA was done, not very definitive. Dr. Moya did feel the patient had a PE and this risks and benefits were discussed with the mother and the patient. The patient will be anticoagulated for 3 months. Symptomatology jaramillo, patient is doing better. On exam: Lungs are clear. Cardiovascular 1st and 2nd sounds are normal. stress test was done in the hospital that was normal by Dr. Franco. CONSULTATION: Dr. Moya from Pulmonary, Dr. Kassandra Franco from [facility]. DISCHARGE MEDICATIONS: 1. Ventolin HFA 2 puffs q.6h p.r.n. 2. U capsule 1 capsule p.o. daily. 3. Lovenox 140 mg subcu daily for 90 days. Follow up with Leena Moss on , Dr. Kassandra Franco 07/31/17, Dr. Jono Blunt 07/29/17. CBC in a week. Other instructions as per Dr. Franco. Copy to Dr. Jono Blunt. MMODL / IJN: [id number] /
== END 2017-07-24 16:02 | disposition home or self-care (01) | DRG 781 ==
LOC: EC 12:27 → 6SEL 16:48
PROVIDERS: ADMIT Hospitalist; ATTEND Hospitalist
PROC: 4A0HXCZ Measurement of Products of Conception, Cardiac Rate, External Approach (ICD-10-PCS; principal; 2017-07-22)
DX: O88.213 Thromboembolism in pregnancy, third trimester (principal); O99.413 Diseases of the circulatory system complicating pregnancy, third trimester; I07.1 Rheumatic tricuspid insufficiency; J45.20 Mild intermittent asthma, uncomplicated; O99.513 Diseases of the respiratory system complicating pregnancy, third trimester; R00.0 Tachycardia, unspecified; R09.81 Nasal congestion; Z90.49 Acquired absence of other specified parts of digestive tract; Z82.49 Family history of ischemic heart disease and other diseases of the circulatory system; Z82.61 Family history of arthritis; Z88.0 Allergy status to penicillin; Z88.1 Allergy status to other antibiotic agents; Z91.02 Food additives allergy status; Z83.3 Family history of diabetes mellitus; Z3A.32 32 weeks gestation of pregnancy
CPT/HCPCS: 36415; 71275; 80048; 80053; 81001; 83735; 85025; 85027; 85379; 85730; 93005; 93306; 93970; 99291

== ENCOUNTER 2017-09-08 11:50 | Outpatient (CLI) | payer BC ==
[2017-09-08 13:05] VITALS: BP 126/66; PULSE 99; RESP 18; TEMP 98.5
[2017-09-08 13:07] LABS: Appearance,Urine Clear (Clear); Bilirubin,Urine Negative (Negative); Blood,Urine Negative (Negative); Color,Urine Light Yellow; Glucose,Urine (UA) Negative (Negative); Ketones,Urine Negative (Negative); Leukocyte Esterase,Urine Negative (Negative); Nitrite,Urine Negative (Negative); Protein,Urine Negative (Negative); Urobilinogen,Urine <2.0 mg/dL (<2.0)
[2017-09-08 13:27] LABS: Basophils % (A) 1 %; Eosinophils # (A) 0.1 k/uL (0-0.7); Eosinophils % (A) 2 %; HCT 35.9 % (34.0-46.0); HGB 11.9 gm/dL (11.4-16.0); Lymphocytes # (A) 1.3 k/uL (1.0-4.8); Lymphocytes % (A) 18 %; MCH 28.1 pg (25.0-35.0); MCV 85.2 fL (80.0-100.0); Mean Platelet Volume 8.5; Monocytes # (A) 0.4 k/uL (0-1.0); Monocytes % (A) 6 %; Neutrophils # (A) 5.1 k/uL (1.3-7.7); Neutrophils % (A) 72 %; Platelet Count 250 k/uL (150-450); RBC 4.21 m/uL (3.80-5.40); RDW 15.1 % (11.5-15.5); WBC 7.1 k/uL (3.8-10.6)
[2017-09-08 13:35] LABS: ALT 23 U/L (9-52); AST 20 U/L (14-36); Blood Urea Nitrogen 8 mg/dL (7-17); LDH 469 U/L (313-618); Uric Acid 5.3 mg/dL (3.7-7.4)
--- NOTE | 2017-09-10 08:54 | P.MSEPDOC ---
Presenting Problems - Arrival Data Date of Arrival on Unit: 09/08/17 Time of Arrival on Unit: 11:50 Mode of Transport: Ambulatory - Complaint OB-Reason for Admission/Chief Complaint: PIH Medical History - Information : 1 Para: 0 Term: 0 : 0 Abortions: Spontaneous or Elective: 0 Number of Living Children: 0 - Gestational Age Gestational Age by MITCHELL (wks/days): 38 Weeks and 5 Days Review of Systems - Review of Systems Constitutional: No problems Breast: No problems ENT: No problems Cardiovascular: No problems Respiratory: No problems Gastrointestinal: No problems Genitourinary: No problems Musculoskeletal: No problems Neurological: No problems Skin: No problems Comment: gall bladder removed, tubes in ears and wisdom teeth removed Hx of exercise induced asthma Vital Signs - Temperature Temperature: 98.5 F Temperature Source: Temporal Artery Scan - Pulse Right Pulse Rate: 99 Pulse Assessment Method: Automatic Cuff - Respirations Respiratory Rate: 18 Oxygen Delivery Method: Room Air O2 Sat by Pulse Oximetry: 97 - Blood Pressure Right Arm Blood Pressure: 126/66 Blood Pressure Mean: 86 Blood Pressure Source: Automatic Cuff Medical Screen Scoring (Pre) - Cervical Exam Dilation: 1-3 cm = 1 Membranes: Intact - Uterine Contractions Frequency: N/A Duration: N/A Intensity: N/A - Maternal Vital Signs Maternal Temperature: N/A Maternal Blood Pressure: N/A Signs of Preeclampsia: N/A Maternal Respirations: N/A - Pain Assessment Pain Location and Character: Abdomen Pain Scale Used: Numeric (1 - 10) Pain Intensity: 4 - Maternal Trauma Maternal Trauma: N/A - Assessment Baseline FHR: 130 Heart Rate - NICHD Category: Category I (Normal) = 0 NST: Reactive Position: N/A Station: N/A - Total Score Total Score (Pre): 1 Physician Notification (Pre) - Physician Notified Physician Notified Date: 09/08/17 Physician Notified Time: 13:45 Physician/Practitioner Notifed:: dr franco Spoke With: dr franco New Order Received: Yes - Notification Comment Comment: discharge home and to follow up with Dr Franco in office for appt tomorrow Disposition - Disposition OB Disposition: Triage, Discharge to home, Written follow up instructions reviewed Discharge Date: 09/08/17 Discharge Time: 14:00 I agree with the RN Medical Screening Exam: Yes Risk & Benefit of care provided described in d/c instruction: Yes Diagnosis: GESTATIONAL EDEMA, THIRD TRIMESTER
== END 2017-09-08 14:00 | disposition home or self-care (01) ==
LOC: FBPOP 11:50
PROVIDERS: ATTEND Obstetrics & Gynecology
DX: O12.03 Gestational edema, third trimester (principal); Z3A.38 38 weeks gestation of pregnancy
CPT/HCPCS: 59025; 81003; 82565; 83615; 84450; 84460; 84520; 84550; 85025; 99215

== ENCOUNTER 2017-09-11 05:50 | Inpatient (IN) | payer BC ==
--- NOTE | 2017-09-10 20:22 | P.HPOB ---
History of Present Illness H&P Date: 09/10/17 Chief Complaint: Induction of labor This is a 21-year-old female 1 para 0 with estimated date of confinement of 09/17/2017, estimated gestational age of 39 and one sevenths weeks, who presents to labor and delivery for induction of labor. Her has been complicated by a presumptive pulmonary embolism diagnosed at approximately 33 weeks. She has been on Lovenox up until 36 weeks and then switch to heparin. She has been taking heparin 10,000 units twice a day. Her last dose was on 09/10/2017 at 9:30 in the morning. She admits to good movement. She has been feeling lower cramping. She does complain of swelling in her lower extremities. She denies any current shortness of breath. She denies any headaches or blurry vision. labs: Hepatitis B surface antigen-negative Rubella-immune Blood type-O+ Antibody screen-negative RPR-nonreactive HIV-nonreactive Hemoglobin-13.2 Toxoplasma screen-negative Random glucose-83 Quad screen-negative Obstetrical ultrasound-normal anatomy One hour Glucola-103 Group B streptococcus-negative Obstetrical history: . Gynecologic history: No history of sexual transmitted diseases. Social history: She is and works full-time for a construction company. Review of Systems Constitutional: Denies chills, Denies fever Eyes: denies blurred vision, denies pain Ears, nose, mouth and throat: Denies headache, Denies sore throat Cardiovascular: Denies chest pain, Denies shortness of breath Respiratory: Denies cough Gastrointestinal: Reports heartburn, Denies abdominal pain, Denies diarrhea, Denies nausea, Denies vomiting Genitourinary: Reports pelvic pain, Reports Musculoskeletal: Reports low back pain Integumentary: Denies pruritus, Denies rash Neurological: Denies numbness, Denies weakness Psychiatric: Denies anxiety, Denies depression Past Medical History Past Medical History: Asthma, Pulmonary Embolus (PE) Additional Past Medical History / Comment(s): RECURRENT RUQ PAIN-resolved,hx of lap gabriela. OVARIAN CYST History of Any Multi-Drug Resistant Organisms: None Reported Past Surgical History: Cholecystectomy, Ear Surgery Additional Past Surgical History / Comment(s): wisdom teeth removed 2013 Past Anesthesia/Blood Transfusion Reactions: No Reported Reaction Past Psychological History: No Psychological Hx Reported Smoking Status: Never smoker Past Alcohol Use History: None Reported Past Drug Use History: None Reported - Past Family History Father Family Medical History: Diabetes Mellitus, Hyperlipidemia, Hypertension Mother Family Medical History: Hypertension, Rheumatoid Arthritis (RA) Medications and Allergies Home Medications Medication Instructions Recorded Confirmed Type Albuterol Inhaler [Ventolin Hfa 2 puff INHALATION RT-Q6H PRN 10/03/15 09/08/17 History Inhaler] Vik-Ckyn-Aokgp Acid 1 cap PO DAILY 07/22/17 09/08/17 History [-U Capsule (formulary)] Heparin Sodium,Porcine [Heparin 10,000 unit IV BID 09/08/17 09/08/17 History Sodium] Allergies Allergy/AdvReac Type Severity Reaction Status Date / Time cefuroxime axetil Allergy Unknown Verified 09/08/17 12:22 [From Ceftin] Penicillins Allergy Rash/Hives Verified 09/08/17 12:22 red dye Allergy Rash/Hives Verified 09/08/17 12:22 sulfamethoxazole Allergy Rash/Hives Verified 09/08/17 12:22 [From Septra] trimethoprim [From Septra] Allergy Rash/Hives Verified 09/08/17 12:22 doxycycline AdvReac Nausea & Verified 09/08/17 12:22 Vomiting levofloxacin [From Levaquin] AdvReac Unknown Verified 09/08/17 12:22 Exam Osteopathic Statement: *. No significant issues noted on an osteopathic structural exam other than those noted in the History and Physical/Consult. HEENT: Within normal limits Heart: Regular rate and rhythm Lungs: Clear to auscultation bilaterally Abdomen: Cervix: 1-1-1/2 cm/60-70%/-2 station heart tones: 140s by Doppler Extremities: Negative Homans Assessment and Plan (1) 39 weeks gestation of Status: Acute Code(s): Z3A.39 - 39 WEEKS GESTATION OF SNOMED Code( s): 29429172 (2) Pulmonary embolism affecting in third trimester Status: Acute Code(s): O88.213 - THROMBOEMBOLISM IN , THIRD TRIMESTER SNOMED Code(s): 468865174 Plan: Proceed with oxytocin induction of labor. Expectant management.
[2017-09-11] MEDS ORDERED: METHYLERGONOVINE 0.2 MG/ML 1 ML AMP IM PRN (06:10)
[2017-09-11] MEDS ORDERED: OXYTOCIN 10 UNIT/ML 1 ML VIAL IM PRN (06:10)
[2017-09-11] MEDS ORDERED: LIDOCAINE 1% (PF) 10 MG/ML (30 ML SDV) SQ PRN (06:10)
[2017-09-11] MEDS ORDERED: CARBOPROST TROMETHAMINE 250 MCG/ML 1 ML AMP IM PRN (06:10)
[2017-09-11] MEDS ORDERED: OXYTOCIN 20 UNITS/1000 ML NS 1,000 ML IV SCH ×2 (06:10→16:09)
[2017-09-11] MEDS ORDERED: TERBUTALINE 1 MG/ML VIAL SQ PRN (06:10)
[2017-09-11] MEDS ORDERED: LIDOCAINE 1% 20 ML VIAL (10MG/ML) FOR IV START INTRADERMA PRN (06:10)
[2017-09-11 06:27] VITALS: BMI 34.3
[2017-09-11 06:32] LABS: INR 0.9 (<1.2)
[2017-09-11 06:33] LABS: Partial Thromboplastin Time 23.8 sec (22.0-30.0); Prothrombin Time 9.4 sec (9.0-12.0)
[2017-09-11] MEDS: LACTATED RINGERS 1,000 ML IV SCH ×2 (06:38→11:39)
[2017-09-11 08:37] LABS: Basophils % (A) 1 %; Eosinophils # (A) 0.1 k/uL (0-0.7); Eosinophils % (A) 1 %; HCT 37.4 % (34.0-46.0); HGB 12.1 gm/dL (11.4-16.0); Lymphocytes # (A) 1.6 k/uL (1.0-4.8); Lymphocytes % (A) 18 %; MCH 27.7 pg (25.0-35.0); MCHC 32.3 g/dL (31.0-37.0); MCV 85.8 fL (80.0-100.0); Mean Platelet Volume 9.6; Monocytes # (A) 0.4 k/uL (0-1.0); Monocytes % (A) 5 %; Neutrophils # (A) 6.8 k/uL (1.3-7.7); Neutrophils % (A) 75 %; Platelet Count 251 k/uL (150-450); RBC 4.36 m/uL (3.80-5.40); RDW 15.4 % (11.5-15.5); WBC 9.1 k/uL (3.8-10.6)
[2017-09-11] MEDS: BUTORPHANOL 1 MG/ML 1 ML VIAL IV PRN ×2 (09:26→12:15)
[2017-09-11] MEDS ORDERED: SIMETHICONE 80 MG CHEWABLE PO PRN (16:09)
[2017-09-11] MEDS ORDERED: HYDROCORTISONE 2.5% RECTAL CREAM 30 GM TUBE RECTAL PRN (16:09)
[2017-09-11] MEDS ORDERED: diphenhydrAMINE 25 MG CAP PO PRN (16:09)
[2017-09-11] MEDS ORDERED: LANOLIN CREAM 5 GM TUBE TOPICAL PRN (16:09)
[2017-09-11] MEDS ORDERED: BENZOCAINE/MENTHOL SPRAY 1 GM/SPRAY AEROSOL TOPICAL PRN (16:09)
[2017-09-11] MEDS ORDERED: ALBUTEROL NEBULIZED 2.5 MG/3 ML INHALATION PRN (16:09)
[2017-09-11] MEDS ORDERED: diphenhydrAMINE 50 MG/ML 1 ML VIAL IVP PRN ×2 (16:09)
[2017-09-11] MEDS ORDERED: ZOLPIDEM 5 MG TAB PO PRN (16:09)
[2017-09-11] MEDS ORDERED: WITCH HAZEL 1 EACH MED..PAD TOPICAL PRN (16:09)
[2017-09-11] MEDS ORDERED: diphenhydrAMINE 50 MG CAP PO PRN (16:09)
[2017-09-11] MEDS ORDERED: ENOXAPARIN 40 MG/0.4 ML SYRINGE SQ SCH (17:00)
[2017-09-11] MEDS: IBUPROFEN 600 MG TAB PO PRN ×2 (17:13→23:24)
--- NOTE | 2017-09-11 17:20 | P.PROBDLV ---
Vaginal Delivery Note - . Vaginal Delivery Note: The patient progressed to complete dilation after oxytocin induction of labor and artificial rupture membranes with clear fluid noted. Anesthesia did attempt to place epidural 2 times but both times got a bloody tap and therefore had to stop. She did receive Stadol while in labor. Once reaching complete dilation, she began pushing. She pushed for almost 2 hours and brought baby's head to a crown. With one further push, the 's head delivered across the perineum in a left occiput posterior lie. Nose and mouth were bulb suctioned at the perineum. With one further push, the remainder the infant easily delivered and was placed on mother's abdomen. Cord was clamped and cut and infant was taken to warmer for evaluation. A viable male was noted with scores of 9 at 1 minute and 9 at 5 minutes and infant weight of 6 lbs. 11 oz. Some caput was noted. Placenta delivered shortly thereafter, intact, with a three-vessel cord. Uterus did contract well after oxytocin was given and uterine massage was carried out. Inspection of the perineum revealed a second- degree perineal laceration. This area was anesthetized with 1% lidocaine and then sutured with 3-0 and 2-0 Vicryl suture in the usual multilayer fashion. Estimated blood loss is approximately 200 mL's. Both mother and infant are in stable condition.
[2017-09-11] MEDS: SENNOSIDES-DOCUSATE SODIUM 1 EACH TAB PO SCH (19:55)
[2017-09-12] MEDS: IBUPROFEN 600 MG TAB PO PRN (06:44)
[2017-09-12 08:30] LABS: Basophils % (A) 0 %; Eosinophils % (A) 0 %; HCT 33.8 % (34.0-46.0); HGB 11.1 gm/dL (11.4-16.0); Lymphocytes # (A) 1.1 k/uL (1.0-4.8); Lymphocytes % (A) 9 %; MCH 28.6 pg (25.0-35.0); MCHC 32.9 g/dL (31.0-37.0); MCV 86.9 fL (80.0-100.0); Mean Platelet Volume 8.4; Monocytes # (A) 0.5 k/uL (0-1.0); Monocytes % (A) 4 %; Neutrophils # (A) 10.6 k/uL (1.3-7.7); Neutrophils % (A) 85 %; Platelet Count 229 k/uL (150-450); RBC 3.89 m/uL (3.80-5.40); RDW 15.5 % (11.5-15.5); WBC 12.4 k/uL (3.8-10.6)
--- NOTE | 2017-09-12 09:07 | P.PNOBGVD ---
Subjective - Subjective Principal diagnosis: Status post vaginal delivery day #1 Interval history: Patient is doing well. She has ambulated. Lochia is decreasing. Pain is well- controlled with ibuprofen. She is attempting to breast-feed. Patient reports: Reports appetite normal, Reports voiding normally, Reports pain well controlled, Reports ambulating normally [place]: doing well, nursing well Objective - Latest Vital Signs Latest vital signs: Vital Signs Temp Pulse Resp BP Pulse Ox 09/12/17 04:00 97.7 F 111 H 16 130/86 96 09/12/17 00:00 98.3 F 99 18 118/66 09/11/17 20:00 97.6 F 109 H 18 124/82 98 09/11/17 18:30 96.5 F L 127 H 20 135/70 96 09/11/17 17:53 104 H 18 131/82 96 09/11/17 17:23 98 18 130/86 99 09/11/17 17:08 94 18 123/87 09/11/17 16:53 111 H 18 129/87 09/11/17 16:38 102 H 18 133/65 09/11/17 16:23 97.6 F 99 18 137/66 96 Intake and Output 09/11/17 09/12/17 09/12/17 22:59 06:59 14:59 Other: # Voids 1 1 - Exam Extremities: Present: edema (Trace). Absent: tenderness Abdomen: Present: soft. Absent: distention, tenderness Uterus: Present: normal, firm. Absent: tenderness - Labs Labs: Abnormal Lab Results - Last 24 Hours (Table) 09/12/17 Range/Units 07:33 WBC 12.4 H (3.8-10.6) k/uL Hgb 11.1 L (11.4-16.0) gm/dL Hct 33.8 L (34.0-46.0) % Neutrophils # 10.6 H (1.3-7.7) k/uL Assessment and Plan Assessment: Status post vaginal delivery day #1 (1) 39 weeks gestation of Current Visit: Yes Status: Acute Code(s): Z3A.39 - 39 WEEKS GESTATION OF SNOMED Code(s): 23624160 (2) Pulmonary embolism affecting in third trimester Current Visit: Yes Status: Acute Code(s): O88.213 - THROMBOEMBOLISM IN , THIRD TRIMESTER SNOMED Code(s): 388158604 Plan: Continue with care. Will restart Lovenox this morning. Advised patient to stop using Motrin and switch to Tylenol as needed for pain. Will anticipate discharge home tomorrow.
[2017-09-12] MEDS: ENOXAPARIN 120 MG/0.8 ML SYRINGE SQ SCH (09:16)
[2017-09-12] MEDS: SENNOSIDES-DOCUSATE SODIUM 1 EACH TAB PO SCH ×2 (09:18→20:10)
[2017-09-12] MEDS: ACETAMINOPHEN TAB 325 MG TAB PO PRN ×3 (12:00→20:10)
[2017-09-13 00:24] VITALS: TEMP 98.4
[2017-09-13] MEDS: ACETAMINOPHEN TAB 325 MG TAB PO PRN ×2 (04:09→09:37)
[2017-09-13] MEDS: ENOXAPARIN 120 MG/0.8 ML SYRINGE SQ SCH (09:36)
[2017-09-13] MEDS: SENNOSIDES-DOCUSATE SODIUM 1 EACH TAB PO SCH (09:37)
--- NOTE | 2017-09-13 10:44 | P.DS ---
Providers Date of admission: 09/11/17 05:50 Expected date of discharge: 09/13/17 Attending physician: Michelle Franco Primary care physician: Stated None - Discharge Diagnosis(es) (1) Normal vaginal delivery Current Visit: Yes Status: Acute (2) History of pulmonary embolus during Current Visit: Yes Status: Acute Hospital Course: Patient underwent normal vaginal delivery. She was replaced on her Lovenox by Dr. Frnaco. She'll be discharged home day #2 in stable condition to follow-up with Dr. Franco in 6 weeks. She denies nausea, vomiting, chest pain, shortness of breath or calf pain. Patient Condition at Discharge: Stable Plan - Discharge Summary New Discharge Prescriptions: New Enoxaparin [Lovenox] 120 mg SQ DAILY #14 syringe Continue Albuterol Inhaler [Ventolin Hfa Inhaler] 2 puff INHALATION RT-Q6H PRN PRN Reason: Shortness Of Breath Qqf-Kfdu-Nsvuv Acid [-U Capsule (formulary)] 1 cap PO DAILY Discontinued Heparin Sodium,Porcine [Heparin Sodium] 10,000 unit IV BID Discharge Medication List Albuterol Inhaler [Ventolin Hfa Inhaler] 2 puff INHALATION RT-Q6H PRN 10/03/15 [ History] Laf-Qith-Glbal Acid [-U Capsule (formulary)] 1 cap PO DAILY [History] Enoxaparin [Lovenox] 120 mg SQ DAILY #14 syringe 09/12/17 [Rx] Follow up Appointment(s)/Referral(s): Michelle Franco DO [Doctor of Osteopathic Medicine] - 6 Weeks Activity/Diet/Wound Care/Special Instructions: Instructions 1. Do not begin any exercise program for 3 weeks. 2. Do not resume sexual relations for 3 weeks or longer if uncomfortable. 3. You may take tub baths or showers at any time. 4. You may use tampons if desired after 3 weeks. 5. Keep the area of episiotomy (stitches) clean and dry. 6. If you are not nursing, wear a good fitting, supportive bra during the day and limit fluid intake for at least 1 week to prevent breast engorgement. 7. Call the office, [phone], within the next week to make appointment for your 6 week checkup if it has not already been made. 8. Report any of the following occurrences to the doctor promptly: a. Heavy, excessive bleeding b. Chills, fever c. Burning or frequency of urination d. Pain or redness and breasts if nursing e. Increasing pain or swelling in episiotomy (stitches). In addition to the above instructions, the following additional should be followed: 1. No heavy lifting or straining (exercising) until after 6 week checkup. 2. Keep abdominal incision clean and dry: You may wear a dressing if more comfortable. 3. Make office appointment for 10 days after going home or as instructed by her doctor. Discharge Disposition: HOME SELF-CARE
[2017-09-13 13:23] VITALS: BP 139/93; PULSE 106; RESP 18
== END 2017-09-13 14:27 | disposition home or self-care (01) | DRG 774 ==
LOC: 4FBP 05:50
PROVIDERS: ADMIT Obstetrics & Gynecology; ATTEND Obstetrics & Gynecology
PROC: 10907ZC Drainage of Amniotic Fluid, Therapeutic from Products of Conception, Via Natural or Artificial Opening (ICD-10-PCS; principal; 2017-09-11)
PROC: 10E0XZZ Delivery of Products of Conception, External Approach (ICD-10-PCS; 2017-09-11)
PROC: 0KQM0ZZ Repair Perineum Muscle, Open Approach (ICD-10-PCS; 2017-09-11)
DX: O88.22 Thromboembolism in childbirth (principal); J45.909 Unspecified asthma, uncomplicated; O32.8XX0 Maternal care for other malpresentation of fetus, not applicable or unspecified; Z3A.39 39 weeks gestation of pregnancy; Z37.0 Single live birth; O70.1 Second degree perineal laceration during delivery; O99.52 Diseases of the respiratory system complicating childbirth; Z82.49 Family history of ischemic heart disease and other diseases of the circulatory system; Z83.3 Family history of diabetes mellitus; Z79.899 Other long term (current) drug therapy; Z88.1 Allergy status to other antibiotic agents; Z88.0 Allergy status to penicillin; Z88.2 Allergy status to sulfonamides
CPT/HCPCS: 85025; 85610; 85730; 88307

== ENCOUNTER → 2017-10-24 | Outpatient (CLI) | payer BC ==
[2017-10-24 15:48] LABS: Blood Urea Nitrogen 13 mg/dL (7-17)
--- NOTE | 2017-10-24 17:18 | CT ---
EXAMINATION TYPE: CT angio chest DATE OF EXAM: 10/24/2017 COMPARISON: CTA chest from 3 months ago HISTORY: Follow up pulmonary embolism CT DLP: 310.6 mGycm. Automated Exposure Control for Dose Reduction was Utilized. CONTRAST: CTA scan of the thorax is performed with IV Contrast, patient injected with 100 mL of Isovue 370, pul monary embolism protocol. MIP Images are created on CT scanner and reviewed. FINDINGS: LUNGS: The lungs are grossly clear, there is no concerning parenchymal mass or nodule identified. T here is no pleural effusion or pneumothorax seen. The tracheobronchial tree is patent. MEDIASTINUM: There is improved opacification on current study without evidence of pulmonary embolism currently. There are no greater than 1 cm hilar or mediastinal lymph nodes. No cardiomegaly or per icardial effusion is seen. Curvilinear soft tissue anterior superior mediastinum is felt to reflect r esidual thymus tissue in patient of this age. OTHER: No additional significant abnormality is seen. IMPRESSION: No CT evidence for acute pulmonary embolism on current study. Unremarkable study.
== END ==
LOC: RADCTMAIN 15:11
PROVIDERS: ATTEND Internal Medicine Critical Care Medicine
DX: I26.99 Other pulmonary embolism without acute cor pulmonale (principal)
CPT/HCPCS: 82565; 84520; 71275; 36415; Q9967

== ENCOUNTER 2017-12-16 08:00 | Emergency (ER) | payer BC ==
[2017-12-16 08:12] VITALS: TEMP 97.6
--- NOTE | 2017-12-16 08:51 | ED ---
Chest Pain HPI - General Chief Complaint: Chest Pain Stated Complaint: Chest Pains Time Seen by Provider: 12/16/17 08:13 Source: patient, RN notes reviewed Mode of arrival: wheelchair Limitations: no limitations - History of Present Illness Initial Comments: This is a 22-year-old female presents emergency Department chief complaint of chest pain. Patient states started on Friday centralized chest pain. Patient states that has not resolved she initially thought it was secondary to stress. Patient states that she has no prior cardiac disease though she has had a history of PEs. Patient states that she had a CT approximately 78 weeks ago which showed a negative CT of her chest. Patient states that she does have the Nexplanon implant in which she states was felt to be the best control for her as he believes that her PE was caused by her previous . 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 She denies any shortness breath at this time. She states that she has no current pleuritic chest pain. - Related Data Home Medications Medication Instructions Recorded Confirmed Albuterol Inhaler [Ventolin Hfa 2 puff INHALATION RT-Q6H PRN 10/03/15 12/16/17 Inhaler] Hfn-Yvbj-Chixo Acid 1 cap PO DAILY 07/22/17 12/16/17 [-U Capsule (formulary)] Etonogestrel [Nexplanon] 68 mg SQ DIRECTED 12/16/17 12/16/17 Previous Rx's Medication Instructions Recorded Ibuprofen [Motrin] 600 mg PO Q8HR PRN #30 tab 12/16/17 Allergies Allergy/AdvReac Type Severity Reaction Status Date / Time cefuroxime axetil Allergy Unknown Verified 12/16/17 08:55 [From Ceftin] Penicillins Allergy Rash/Hives Verified 12/16/17 08:55 red dye Allergy Rash/Hives Verified 12/16/17 08:55 sulfamethoxazole Allergy Rash/Hives Verified 12/16/17 08:55 [From Septra] trimethoprim [From Septra] Allergy Rash/Hives Verified 12/16/17 08:55 doxycycline AdvReac Nausea & Verified 12/16/17 08:55 Vomiting levofloxacin [From Levaquin] AdvReac Unknown Verified 12/16/17 08:55 Review of Systems ROS Statement: Those systems with pertinent positive or pertinent negative responses have been documented in the HPI. ROS Other: All systems not noted in ROS Statement are negative. EKG Findings - EKG Comments: EKG Findings:: EKG performed at 8:20 there is a flipped T-wave in V2 and Q waves noted in lead 3 which is on prior EKG Past Medical History Past Medical History: Asthma, Pulmonary Embolus (PE) Additional Past Medical History / Comment(s): RECURRENT RUQ PAIN-resolved,hx of lap gabriela. OVARIAN CYST History of Any Multi-Drug Resistant Organisms: None Reported Past Surgical History: Cholecystectomy, Ear Surgery Additional Past Surgical History / Comment(s): wisdom teeth removed 2013 Past Anesthesia/Blood Transfusion Reactions: No Reported Reaction Past Psychological History: No Psychological Hx Reported Smoking Status: Never smoker Past Alcohol Use History: None Reported Past Drug Use History: None Reported - Past Family History Father Family Medical History: Diabetes Mellitus, Hyperlipidemia, Hypertension Mother Family Medical History: Hypertension, Rheumatoid Arthritis (RA) General Exam Limitations: no limitations General appearance: alert, in no apparent distress Neck exam: Present: normal inspection, full ROM. Absent: tenderness, meningismus, lymphadenopathy Respiratory exam: Present: normal lung sounds bilaterally, chest wall tenderness. Absent: respiratory distress, wheezes, rales, rhonchi, stridor Cardiovascular Exam: Present: regular rate, normal rhythm, normal heart sounds. Absent: systolic murmur, diastolic murmur, rubs, gallop, clicks GI/Abdominal exam: Present: soft, normal bowel sounds. Absent: distended, tenderness, guarding, rebound, rigid Course Vital Signs 12/16/17 12/16/17 08:10 09:44 Temperature 97.6 F Pulse Rate 92 87 Respiratory 18 16 Rate Blood Pressure 121/76 110/61 O2 Sat by Pulse 98 98 Oximetry Chest Pain MDM - [facility] 22-year-old female presented for chest pain. This is reproducible anterior chest wall pain. Patient EKG, lab work which all within normal limits. Patient had recent PE with d-dimer is negative this time and she is not tachycardic. She has no shortness of breath. I do feel that she has costochondritis related to recent URI symptoms that she had. Patient we treated with anti-inflammatories. Case and EKG reviewed with Dr. Jung. Disposition Clinical Impression: Costochondritis, acute Disposition: HOME SELF-CARE Condition: Stable Instructions: Costochondritis (ED) Additional Instructions: Please return to the Emergency Department if symptoms worsen or any other concerns. Prescriptions: Ibuprofen [Motrin] 600 mg PO Q8HR PRN #30 tab PRN Reason: Pain Is patient prescribed a controlled substance at d/c from ED?: No Referrals: Jono Blunt MD [Primary Care Provider] - 1-2 days Time of Disposition: 09:51
[2017-12-16 08:56] LABS: Basophils % (A) 1 %; Eosinophils # (A) 0.2 k/uL (0-0.7); Eosinophils % (A) 4 %; HCT 38.1 % (34.0-46.0); Lymphocytes # (A) 1.6 k/uL (1.0-4.8); Lymphocytes % (A) 25 %; MCHC 34.2 g/dL (31.0-37.0); MCV 84.7 fL (80.0-100.0); Monocytes # (A) 0.5 k/uL (0-1.0); Monocytes % (A) 7 %; Neutrophils # (A) 3.8 k/uL (1.3-7.7); Neutrophils % (A) 61 %; Platelet Count 277 k/uL (150-450); RBC 4.49 m/uL (3.80-5.40); RDW 13.1 % (11.5-15.5); WBC 6.2 k/uL (3.8-10.6)
[2017-12-16 09:01] LABS: ALT 80 U/L (9-52); AST 53 U/L (14-36); Albumin 4.5 g/dL (3.5-5.0); Alkaline Phosphatase 117 U/L (38-126); Anion Gap 11 mmol/L; Blood Urea Nitrogen 10 mg/dL (7-17); Calcium 9.8 mg/dL (8.4-10.2); Carbon Dioxide 23 mmol/L (22-30); Chloride 109 mmol/L (98-107); Glucose 96 mg/dL (74-99); Magnesium 1.7 mg/dL (1.6-2.3); Potassium 3.9 mmol/L (3.5-5.1); Sodium 143 mmol/L (137-145); Total Bilirubin 0.3 mg/dL (0.2-1.3); Total Protein 7.2 g/dL (6.3-8.2)
[2017-12-16 09:09] LABS: D-Dimer 0.3 mg/L FEU (<0.60); Partial Thromboplastin Time 23.5 sec (22.0-30.0); Prothrombin Time 9.5 sec (9.0-12.0)
--- NOTE | 2017-12-16 09:15 | XR ---
EXAMINATION TYPE: XR chest 2V DATE OF EXAM: 10/24/2017 COMPARISON: 12/16/2017 HISTORY: Chest pain TECHNIQUE: Frontal and lateral views of the chest are obtained. FINDINGS: There is no focal air space opacity, pleural effusion, or pneumothorax seen. The cardiac silhouette size is within normal limits. The osseous structures are intact. Cholecystectomy clips a re noted within the right upper quadrant. IMPRESSION: No acute cardiopulmonary process.
[2017-12-16 09:46] VITALS: BP 110/61; PULSE 87; RESP 16
== END 2017-12-16 09:58 | disposition home or self-care (01) ==
LOC: EC 08:00
DX: M94.0 Chondrocostal junction syndrome [Tietze] (principal); Z86.711 Personal history of pulmonary embolism; Z88.0 Allergy status to penicillin; Z88.1 Allergy status to other antibiotic agents; Z88.2 Allergy status to sulfonamides; Z88.8 Allergy status to other drugs, medicaments and biological substances; Z91.048 Other nonmedicinal substance allergy status; Z79.3 Long term (current) use of hormonal contraceptives; Z79.899 Other long term (current) drug therapy
CPT/HCPCS: 36415; 71046; 80053; 81025; 83735; 84484; 85025; 85379; 85610; 85730; 93005; 99285

== ENCOUNTER 2018-06-26 10:05 | Day surgery (SDC) | payer BC ==
[2018-06-24 13:18] VITALS: BMI 27.4
[~2018-06-26 10:05] MED LIST: LACTATED RINGERS 1,000 ML IV SCH; LIDOCAINE 1% 20 ML VIAL (10MG/ML) FOR IV START INTRADERMA PRN
[2018-06-26 10:49] VITALS: TEMP 97.7
[2018-06-26] MEDS ORDERED: PROPOFOL 10 MG/ML 20 ML VIAL IV ONE (10:49)
--- NOTE | 2018-06-26 11:12 | P.PCN ---
Date of Procedure: 06/26/18 Procedure(s) Performed: BRIEF HISTORY: Patient is a 22-year-old pleasant female, scheduled for an elective colonoscopy as a part of value should of intermittent rectal bleeding for the last 6 months duration. PROCEDURE PERFORMED: Colonoscopy. PREOPERATIVE DIAGNOSIS: Intermittent rectal bleeding. IV sedation per Anesthesia. PROCEDURE: After informed consent was obtained, the patient, was brought into the endoscopy unit. IV sedation was administered by Anesthesia under continuous monitoring. Digital rectal examination was normal. Initially the Olympus CF- 160 flexible video colonoscope was then inserted in the rectum, gradually advanced into the cecum without any difficulty. Careful examination was performed as the scope was gradually being withdrawn. Ileocecal valve and the appendiceal orifice were visualized and appeared normal. Prep was excellent. Mucosa of the cecum, ascending colon, transverse colon, descending colon, sigmoid colon, and rectum appeared normal. Retroflexion was performed in the rectum and no lesions were seen. The patient tolerated the procedure well. IMPRESSION: Normal-appearing colon from rectum to cecum with no evidence of colorectal neoplasia or colitis . RECOMMENDATIONS: Findings of this examination were discussed with the patient as well as a family. She was advised to be a high-fiber diet and take fiber Supplements on a regular basis and avoid straining and constipation..
[2018-06-26 11:37] VITALS: BP 95/66; PULSE 88; RESP 18
== END 2018-06-26 11:54 | disposition home or self-care (01) ==
LOC: ORWHC2ENDO 10:05
PROVIDERS: ATTEND Internal Medicine Gastroenterology
DX: K62.5 Hemorrhage of anus and rectum (principal); J45.909 Unspecified asthma, uncomplicated; Z88.0 Allergy status to penicillin; Z88.2 Allergy status to sulfonamides; Z88.1 Allergy status to other antibiotic agents; Z88.3 Allergy status to other anti-infective agents; Z91.041 Radiographic dye allergy status; Z86.711 Personal history of pulmonary embolism; Z79.890 Hormone replacement therapy; Z79.51 Long term (current) use of inhaled steroids
CPT/HCPCS: 81025; 45378; J2704

== ENCOUNTER 2021-05-30 20:30 | Emergency (ER) | payer BC ==
[2021-05-30 21:25] VITALS: TEMP 98.7
[2021-05-30 23:22] VITALS: BP 125/83; PULSE 88; RESP 16
[2021-05-31 00:52] LABS: Basophils % (A) 1 %; Eosinophils # (A) 0.1 k/uL (0-0.7); Eosinophils % (A) 1 %; HCT 42.6 % (34.0-46.0); HGB 14.2 gm/dL (11.4-16.0); Lymphocytes # (A) 1.7 k/uL (1.0-4.8); Lymphocytes % (A) 36 %; MCH 30.2 pg (25.0-35.0); MCHC 33.3 g/dL (31.0-37.0); MCV 90.7 fL (80.0-100.0); Mean Platelet Volume 7.5; Monocytes # (A) 0.3 k/uL (0-1.0); Monocytes % (A) 6 %; Neutrophils # (A) 2.6 k/uL (1.3-7.7); Neutrophils % (A) 54 %; Platelet Count 233 k/uL (150-450); RDW 12.6 % (11.5-15.5); WBC 4.8 k/uL (3.8-10.6)
[2021-05-31 01:03] LABS: Appearance,Urine Cloudy (Clear); Bilirubin,Urine Negative (Negative); Blood,Urine Large (Negative); Color,Urine Light Red; Glucose,Urine (UA) Negative (Negative); Ketones,Urine Negative (Negative); Leukocyte Esterase,Urine Trace (Negative); Mucus,Urine Many /hpf; Nitrite,Urine Negative (Negative); PH, Urine 5.5 (5.0-8.0); Protein,Urine 1+ (Negative); RBC,Urine >182 /hpf (0-5); Specific Gravity,Urine 1.031 (1.001-1.035); Squamous Epithelial Cell,Urine 6 /hpf (0-4); Urobilinogen,Urine <2.0 mg/dL (<2.0); WBC,Urine 10 /hpf (0-5)
--- NOTE | 2021-05-31 01:03 | ED ---
General Adult HPI - General Chief complaint: Vaginal Bleeding Stated complaint: Vaginal Bleeding, 10 weeks preg. Time Seen by Provider: 05/30/21 23:18 Source: patient Mode of arrival: ambulatory Limitations: no limitations - History of Present Illness Initial comments: 25 year-old female patient who is approximately 10 weeks , , presents to the emergency department today for evaluation of vaginal bleeding. States she had light vaginal bleeding earlier in the day and then this evening it became heavier. States she did have to apply a pad. Denies any passage of blood clots. States she did have some mild cramping while waiting in the waiting room. She states she is currently taking Lovenox due to history of pulmonary embolism during her last . She started this out 2 weeks ago. States she did have a normal ultrasound at 8 weeks. She is seeing a high risk maternal medicine. She denies any nausea, vomiting, constipation, diarrhea. Denies any hematuria, dysuria, urinary frequency, urinary urgency. Denies having bleeding during her last . - Related Data Home Medications Medication Instructions Recorded Confirmed Albuterol Inhaler (Mhu) [Ventolin 2 puff INHALATION RT-Q6H PRN 10/03/15 06/26/18 Hfa Inhaler (Mhu)] Etonogestrel [Nexplanon] 68 mg SQ DIRECTED 12/16/17 06/24/18 Allergies Allergy/AdvReac Type Severity Reaction Status Date / Time cefuroxime axetil Allergy Unknown Verified 05/30/21 21:21 [From Ceftin] Penicillins Allergy Rash/Hives Verified 05/30/21 21:21 red dye Allergy Rash/Hives Verified 05/30/21 21:21 sulfamethoxazole Allergy Rash/Hives Verified 05/30/21 21:21 [From Septra] trimethoprim [From Septra] Allergy Rash/Hives Verified 05/30/21 21:21 doxycycline AdvReac Nausea & Verified 05/30/21 21:21 Vomiting levofloxacin [From Levaquin] AdvReac Unknown Verified 05/30/21 21:21 Review of Systems ROS Statement: Those systems with pertinent positive or pertinent negative responses have been documented in the HPI. ROS Other: All systems not noted in ROS Statement are negative. Past Medical History Past Medical History: Asthma, Pulmonary Embolus (PE) Additional Past Medical History / Comment(s): RECURRENT RUQ PAIN-resolved,. O VARIAN CYST, endoscopy. History of Any Multi-Drug Resistant Organisms: None Reported Past Surgical History: Cholecystectomy, Ear Surgery Additional Past Surgical History / Comment(s): wisdom teeth removed 2013 Past Anesthesia/Blood Transfusion Reactions: No Reported Reaction Past Psychological History: No Psychological Hx Reported Smoking Status: Never smoker Past Alcohol Use History: None Reported Past Drug Use History: None Reported - Past Family History Father Family Medical History: Diabetes Mellitus, Hyperlipidemia, Hypertension Mother Family Medical History: Hypertension, Rheumatoid Arthritis (RA) General Exam Limitations: no limitations General appearance: alert, in no apparent distress, other (This is a well- developed, well-nourished adult female in no acute distress. ) ENT exam: Present: normal exam, normal oropharynx, mucous membranes moist Respiratory exam: Present: normal lung sounds bilaterally. Absent: respiratory distress, wheezes, rales, rhonchi, stridor Cardiovascular Exam: Present: regular rate, normal rhythm, normal heart sounds. Absent: systolic murmur, diastolic murmur, rubs, gallop, clicks GI/Abdominal exam: Present: soft, normal bowel sounds. Absent: distended, tenderness, guarding, rebound, rigid Neurological exam: Present: alert, oriented X3, CN II-XII intact Psychiatric exam: Present: normal affect, normal mood Skin exam: Present: warm, dry, intact, normal color. Absent: rash Course Vital Signs 05/30/21 05/30/21 21:22 23:20 Temperature 98.7 F Pulse Rate 94 88 Respiratory 20 16 Rate Blood Pressure 126/87 125/83 O2 Sat by Pulse 99 98 Oximetry Medical Decision Making - Medical Decision Making 25 year-old female patient reportedly 10 weeks , presents for evaluation of vaginal bleeding. Physical examination is unremarkable. She is having mild vaginal bleeding at this time with mild cramping. Physical examination revealed soft nontender abdomen. Labs reviewed and did reveal hCG count of 8000. ABO Rh O positive. Transvaginal ultrasound was obtained and showed pseudo-gestational sac, nonviable with demise at 7 weeks and 2 days. I did discuss findings and results with the patient. She is currently taking Lovenox for history of PE in . She'll be discharged tonight with instructions to contact her DIE [employer] Dr. Franco first thing in the morning, she is instructed to contact her high risk specialist as well. We did discuss return if her bleeding worsens or she has any new symptoms. She is agreeable to plan. My attending is Dr. Bautista. - Lab Data Result diagrams: 05/31/21 00:25 05/31/21 00:25 Lab Results 05/30/21 05/31/21 05/31/21 Range/Units 00:24 00:20 00:25 WBC 4.8 (3.8-10.6) k/uL RBC 4.70 (3.80-5.40) m/uL Hgb 14.2 (11.4-16.0) gm/dL Hct 42.6 (34.0-46.0) % MCV 90.7 (80.0-100.0) fL MCH 30.2 (25.0-35.0) pg MCHC 33.3 (31.0-37.0) g/dL RDW 12.6 (11.5-15.5) % Plt Count 233 (150-450) k/uL MPV 7.5 Neutrophils % 54 % Lymphocytes % 36 % Monocytes % 6 % Eosinophils % 1 % Basophils % 1 % Neutrophils # 2.6 (1.3-7.7) k/uL Lymphocytes # 1.7 (1.0-4.8) k/uL Monocytes # 0.3 (0-1.0) k/uL Eosinophils # 0.1 (0-0.7) k/uL Basophils # 0.0 (0-0.2) k/uL Sodium (137-145) mmol/L Potassium (3.5-5.1) mmol/L Chloride (98-107) mmol/L Carbon Dioxide (22-30) mmol/L Anion Gap mmol/L BUN (7-17) mg/dL Creatinine (0.52-1.04) mg/dL Est GFR (CKD-EPI)AfAm (>60 ml/min/1.73 sqM) Est GFR (CKD-EPI)NonAf (>60 ml/min/1.73 sqM) Glucose (74-99) mg/dL Calcium (8.4-10.2) mg/dL Total Bilirubin (0.2-1.3) mg/dL AST (14-36) U/L ALT (4-34) U/L Alkaline Phosphatase (38-126) U/L Total Protein (6.3-8.2) g/dL Albumin (3.5-5.0) g/dL HCG, Quant mIU/mL Urine Color Light Red Urine Appearance Cloudy H (Clear) Urine pH 5.5 (5.0-8.0) Ur Specific [place] 1.031 (1.001-1.035) Urine Protein 1+ H (Negative) Urine Glucose (UA) Negative (Negative) Urine Ketones Negative (Negative) Urine Blood Large H (Negative) Urine Nitrite Negative (Negative) Urine Bilirubin Negative (Negative) Urine Urobilinogen <2.0 (<2.0) mg/dL Ur Leukocyte Esterase Trace H (Negative) Urine RBC >182 H (0-5) /hpf Urine WBC 10 H (0-5) /hpf Ur Squamous Epith Cells 6 H (0-4) /hpf Urine Mucus Many H (None) /hpf Blood Type O Positive Blood Type Recheck No Previous Record Bld Type Recheck Status [facility] ONLY 05/31/21 Range/Units 00:25 WBC (3.8-10.6) k/uL RBC (3.80-5.40) m/uL Hgb (11.4-16.0) gm/dL Hct (34.0-46.0) % MCV (80.0-100.0) fL MCH (25.0-35.0) pg MCHC (31.0-37.0) g/dL RDW (11.5-15.5) % Plt Count (150-450) k/uL MPV Neutrophils % % Lymphocytes % % Monocytes % % Eosinophils % % Basophils % % Neutrophils # (1.3-7.7) k/uL Lymphocytes # (1.0-4.8) k/uL Monocytes # (0-1.0) k/uL Eosinophils # (0-0.7) k/uL Basophils # (0-0.2) k/uL Sodium 139 (137-145) mmol/L Potassium 3.9 (3.5-5.1) mmol/L Chloride 105 (98-107) mmol/L Carbon Dioxide 23 (22-30) mmol/L Anion Gap 11 mmol/L BUN 7 (7-17) mg/dL Creatinine 0.54 (0.52-1.04) mg/dL Est GFR (CKD-EPI)AfAm >90 (>60 ml/min/1.73 sqM) Est GFR (CKD-EPI)NonAf >90 (>60 ml/min/1.73 sqM) Glucose 88 (74-99) mg/dL Calcium 9.4 (8.4-10.2) mg/dL Total Bilirubin 0.5 (0.2-1.3) mg/dL AST 40 H (14-36) U/L ALT 93 H (4-34) U/L Alkaline Phosphatase 118 (38-126) U/L Total Protein 7.1 (6.3-8.2) g/dL Albumin 4.2 (3.5-5.0) g/dL HCG, Quant 8801.3 mIU/mL Urine Color Urine Appearance (Clear) Urine pH (5.0-8.0) Ur Specific Lincoln (1.001-1.035) Urine Protein (Negative) Urine Glucose (UA) (Negative) Urine Ketones (Negative) Urine Blood (Negative) Urine Nitrite (Negative) Urine Bilirubin (Negative) Urine Urobilinogen (<2.0) mg/dL Ur Leukocyte Esterase (Negative) Urine RBC (0-5) /hpf Urine WBC (0-5) /hpf Ur Squamous Epith Cells (0-4) /hpf Urine Mucus (None) /hpf Blood Type Blood Type Recheck Bld Type Recheck Status - Radiology Data Radiology results: report reviewed, image reviewed ultrasound was obtained. Report was reviewed in its entirety. Impression by Dr. Jean Baptiste shows intrauterine gestational sac with pole and no cardiac activity and consistent with demise at 7 weeks and 2 days gestation. There is a second fluid collection adjacent without pull or yolk sac. This could be provided over more pseudo-gestational sac. No adnexal mass. No evidence of ectopic . Disposition Clinical Impression: Miscarriage Disposition: HOME SELF-CARE Condition: Good Instructions (If sedation given, give patient instructions): Miscarriage (ED) Additional Instructions: Contact Dr. Franco and your high accounts specialist first thing in the morning. Return to the emergency department immediately if your bleeding worsens or you have any other concerning symptoms. Is patient prescribed a controlled substance at d/c from ED?: No Referrals: Alicia Reno MD [Primary Care Provider] - 1-2 days Time of Disposition: 02:01
[2021-05-31 01:14] LABS: ALT 93 U/L (4-34); AST 40 U/L (14-36); African American GFR (CKD) >90 (>60 ml/min/1.73 sqM); Albumin 4.2 g/dL (3.5-5.0); Alkaline Phosphatase 118 U/L (38-126); Anion Gap 11 mmol/L; Blood Urea Nitrogen 7 mg/dL (7-17); Calcium 9.4 mg/dL (8.4-10.2); Carbon Dioxide 23 mmol/L (22-30); Chloride 105 mmol/L (98-107); Glucose 88 mg/dL (74-99); Non-African American GFR(CKD) >90 (>60 ml/min/1.73 sqM); Potassium 3.9 mmol/L (3.5-5.1); Sodium 139 mmol/L (137-145); Total Bilirubin 0.5 mg/dL (0.2-1.3); Total Protein 7.1 g/dL (6.3-8.2)
[2021-05-31 01:28] LABS: HCG,Quantitative Serum 8801.3 mIU/mL
--- NOTE | 2021-05-31 01:33 | US ---
EXAMINATION TYPE: US OB <= 14 wk twins DATE OF EXAM: 05/31/2021 COMPARISON: First US for this here. CLINICAL HISTORY: Vaginal bleeding; Approx 10weeks. Bleeding.Patient states she had an ultrasound 1 07/12/20 and there were two gestational sacs, one viable fetus. . EXAM PERFORMED: Transabdominal (TA) EXAM MEASUREMENTS: GESTATIONAL AGE / DATING Physician Established: (10 weeks/4 days) EDC: 12/23/2021 Dates by LMP: Unknown. Dates by First Scan: This is first scan here. Dates by Current Scan for Baby A: (7 weeks/3 days) EDC: 01/14/2022. No heart tones seen at this time. Dates by Current Scan for Baby B: ( 5 weeks/4 days) EDC: 01/27/2022. By gestational sac. MATERNAL ANATOMY Uterus: 10.2 x 5.8 x 5.5 cm. Right Ovary: 2.3 x 2.0 x 1.0 cm. Left Ovary: 3.5 x 1.1 x 1.7 cm. Post CDS / Adnexa: Appear wnl. Presence of free fluid: None seen. Presence of corpus luteal cyst: Not seen. Presence of subchorionic bleed: Possible- heterogeneous area seen adjacent to gestational sac baby b measuring 0.6 x 0.8 x 0.5 cm. Presence of two separate gestational sacs: Yes. GESTATION / SURVEY TWIN A CRL: 1.18 cm. (7 wks/ 3 days) MSD: 2.38 cm. (7 wks/ 0 days) Yolk Sac (normal less than 6mm): Not seen. Heart Rate: - IUP: Heart tones not seen at this time. TWIN B CRL: Not seen. MSD: 1.40 cm. (5 wks/ 4 days) Yolk Sac (normal less than 6mm): Not seen. IUP: Gestational sac seen only. Beta HcG (if available): Not available. IMPRESSION: There is intrauterine gestational sac with pole and no cardiac activity and consistent with fet al demise at 7 weeks and 2 days gestation. There is a second fluid collection adjacent without pole or yolk sac. This could be blighted ov um or pseudogestational sac. No adnexal mass. No evidence of ectopic .
[2021-05-31] MEDS ORDERED: ACET/COD 300 MG/30 MG STARTER PACK 6 TAB BTL PO STA (02:24)
== END 2021-05-31 02:46 | disposition home or self-care (01) ==
LOC: EC 20:30
DX: O03.9 Complete or unspecified spontaneous abortion without complication (principal); J45.909 Unspecified asthma, uncomplicated; Z3A.10 10 weeks gestation of pregnancy; Z88.1 Allergy status to other antibiotic agents; Z88.2 Allergy status to sulfonamides; Z88.0 Allergy status to penicillin; Z86.711 Personal history of pulmonary embolism; Z90.49 Acquired absence of other specified parts of digestive tract
CPT/HCPCS: 36415; 76801; 76802; 80053; 81001; 84702; 85025; 86900; 86901; 99284

== ENCOUNTER 2021-06-09 20:20 | Emergency (ER) | payer BC ==
[2021-06-09 20:45] VITALS: BP 118/82; PULSE 87; RESP 20; TEMP 98.2
--- NOTE | 2021-06-09 22:13 | ED ---
General Adult HPI - General Chief complaint: Vaginal Bleeding Stated complaint: Abnormal vaginal bleeding Time Seen by Provider: 06/09/21 21:11 Source: patient Mode of arrival: ambulatory Limitations: no limitations - History of Present Illness Initial comments: Patient is 25-year-old woman who presents to have evaluation for vaginal bleeding. The patient states that she had a miscarriage on May 30. She was approximately 10 weeks at this time. She states that she was then discharged from the emergency department here and followed up with Dr. Franco who has scheduled her to have a D&C on June 11. The patient states that over the past days she has been having a variable amount of vaginal bleeding at times up to about a pad per hour. She has passed some moderate sized clots as well. Currently no symptoms of anemia. No palpitations, dyspnea, diaphoresis, lightheadedness or syncope. -: days(s) Location: pelvis Quality: other (Cramping) Consistency: intermittent Improves with: none Worsens with: none Associated Symptoms: other (Vaginal bleeding) Treatments Prior to Arrival: none - Related Data Home Medications Medication Instructions Recorded Confirmed Albuterol Inhaler (Mhu) [Ventolin 2 puff INHALATION RT-Q6H PRN 10/03/15 06/07/21 Hfa Inhaler (Mhu)] Enoxaparin [Lovenox] 40 mg SQ DAILY 06/07/21 06/07/21 Allergies Allergy/AdvReac Type Severity Reaction Status Date / Time cefuroxime axetil Allergy Unknown Verified 06/09/21 20:45 [From Ceftin] Penicillins Allergy Rash/Hives Verified 06/09/21 20:45 red dye Allergy Rash/Hives Verified 06/09/21 20:45 sulfamethoxazole Allergy Rash/Hives Verified 06/09/21 20:45 [From Septra] trimethoprim [From Septra] Allergy Rash/Hives Verified 06/09/21 20:45 doxycycline AdvReac Nausea & Verified 06/09/21 20:45 Vomiting levofloxacin [From Levaquin] AdvReac Unknown Verified 06/09/21 20:45 Review of Systems ROS Statement: Those systems with pertinent positive or pertinent negative responses have been documented in the HPI. ROS Other: All systems not noted in ROS Statement are negative. Constitutional: Denies: fever, chills Respiratory: Denies: cough, dyspnea Cardiovascular: Denies: chest pain, palpitations, edema Gastrointestinal: Reports: as per HPI, abdominal pain. Denies: vomiting, diarrhea Genitourinary: Reports: discharge (Bleeding). Denies: dysuria, frequency, hematuria Musculoskeletal: Denies: back pain Skin: Denies: rash Neurological: Denies: headache, weakness Past Medical History Past Medical History: Asthma, Pulmonary Embolus (PE) Additional Past Medical History / Comment(s): PCOS, PE w/last , miscarr iage History of Any Multi-Drug Resistant Organisms: None Reported Past Surgical History: Cholecystectomy, Ear Surgery Additional Past Surgical History / Comment(s): wisdom teeth removed 2013 Past Anesthesia/Blood Transfusion Reactions: No Reported Reaction Past Psychological History: No Psychological Hx Reported Smoking Status: Never smoker Past Alcohol Use History: None Reported Past Drug Use History: None Reported - Past Family History Father Family Medical History: Diabetes Mellitus, Hyperlipidemia, Hypertension Mother Family Medical History: Hypertension, Rheumatoid Arthritis (RA) General Exam Limitations: no limitations General appearance: alert, in no apparent distress Head exam: Present: atraumatic, normocephalic Eye exam: Present: normal appearance. Absent: scleral icterus, conjunctival injection ENT exam: Present: normal oropharynx Respiratory exam: Present: normal lung sounds bilaterally. Absent: respiratory distress, wheezes, rales, rhonchi, stridor Cardiovascular Exam: Present: regular rate, normal rhythm, normal heart sounds. Absent: systolic murmur, diastolic murmur, rubs, gallop GI/Abdominal exam: Present: soft. Absent: distended, tenderness, guarding, rebound, rigid, mass Extremities exam: Present: normal inspection, normal capillary refill. Absent: pedal edema, calf tenderness Back exam: Present: normal inspection. Absent: CVA tenderness (R), CVA tenderness (L) Neurological exam: Present: alert Skin exam: Present: warm, dry, intact, normal color. Absent: rash Course Vital Signs 06/09/21 20:40 Temperature 98.2 F Pulse Rate 87 Respiratory 20 Rate Blood Pressure 118/82 O2 Sat by Pulse 99 Oximetry Medical Decision Making - Lab Data Result diagrams: 06/09/21 22:19 Lab Results 06/09/21 06/09/21 Range/Units 22:19 22:19 WBC 6.3 (3.8-10.6) k/uL RBC 3.91 (3.80-5.40) m/uL Hgb 11.9 (11.4-16.0) gm/dL Hct 35.7 (34.0-46.0) % MCV 91.1 (80.0-100.0) fL MCH 30.3 (25.0-35.0) pg MCHC 33.3 (31.0-37.0) g/dL RDW 12.7 (11.5-15.5) % Plt Count 292 (150-450) k/uL MPV 7.9 Neutrophils % 50 % Lymphocytes % 39 % Monocytes % 5 % Eosinophils % 4 % Basophils % 1 % Neutrophils # 3.1 (1.3-7.7) k/uL Lymphocytes # 2.4 (1.0-4.8) k/uL Monocytes # 0.3 (0-1.0) k/uL Eosinophils # 0.3 (0-0.7) k/uL Basophils # 0.1 (0-0.2) k/uL HCG, Quant 348.4 mIU/mL Disposition Clinical Impression: Miscarriage Disposition: HOME SELF-CARE Condition: Good Instructions (If sedation given, give patient instructions): Miscarriage (ED) Is patient prescribed a controlled substance at d/c from ED?: No Referrals: Alicia Reno MD [Primary Care Provider] - 1-2 days Michelle Franco DO [Doctor of Osteopathic Medicine] - 1-2 days
[2021-06-09 22:33] LABS: Basophils # (A) 0.1 k/uL (0-0.2); Basophils % (A) 1 %; Eosinophils # (A) 0.3 k/uL (0-0.7); Eosinophils % (A) 4 %; HCT 35.7 % (34.0-46.0); HGB 11.9 gm/dL (11.4-16.0); Lymphocytes # (A) 2.4 k/uL (1.0-4.8); Lymphocytes % (A) 39 %; MCH 30.3 pg (25.0-35.0); MCHC 33.3 g/dL (31.0-37.0); MCV 91.1 fL (80.0-100.0); Mean Platelet Volume 7.9; Monocytes # (A) 0.3 k/uL (0-1.0); Monocytes % (A) 5 %; Neutrophils # (A) 3.1 k/uL (1.3-7.7); Neutrophils % (A) 50 %; Platelet Count 292 k/uL (150-450); RBC 3.91 m/uL (3.80-5.40); RDW 12.7 % (11.5-15.5); WBC 6.3 k/uL (3.8-10.6)
== END 2021-06-09 23:58 | disposition home or self-care (01) ==
LOC: EC 20:20
DX: N93.9 Abnormal uterine and vaginal bleeding, unspecified (principal); J45.909 Unspecified asthma, uncomplicated; Z88.0 Allergy status to penicillin; Z88.1 Allergy status to other antibiotic agents; Z88.2 Allergy status to sulfonamides; Z86.711 Personal history of pulmonary embolism; Z90.49 Acquired absence of other specified parts of digestive tract
CPT/HCPCS: 36415; 84702; 85025; 86850; 86900; 86901; 99284

== ENCOUNTER 2022-08-08 14:35 | Outpatient (CLI) | payer BC ==
[2022-08-08 15:58] LABS: Amorphous Sediment,Urine Rare /hpf; Appearance,Urine Cloudy (Clear); Bilirubin,Urine Negative (Negative); Blood,Urine Negative (Negative); Color,Urine Yellow; Glucose,Urine (UA) Negative (Negative); Ketones,Urine Negative (Negative); Leukocyte Esterase,Urine Small (Negative); Mucus,Urine Occasional /hpf; Nitrite,Urine Negative (Negative); PH, Urine 7.5 (5.0-8.0); Protein,Urine Trace (Negative); Specific Gravity,Urine 1.017 (1.001-1.035); Squamous Epithelial Cell,Urine 9 /hpf (0-4); WBC,Urine 12 /hpf (0-5)
[2022-08-08 16:47] VITALS: BP 124/74; PULSE 123; RESP 16; TEMP 98.4
--- NOTE | 2022-08-12 23:24 | P.MSEPDOC ---
Presenting Problems - Arrival Data Date of Arrival on Unit: 08/08/22 Time of Arrival on Unit: 14:35 Mode of Transport: Ambulatory - Complaint OB-Reason for Admission/Chief Complaint: NST Comment: Pt. presents to triage with complaints of sharp lower abdominal/groin pain, shooting to the vaginal area occuring about every 3-5 hours lasting around 10-15 minutes starting around 0400 this AM Medical History - Information : 3 Para: 1 Term: 1 : 0 Abortions: Spontaneous or Elective: 1 Number of Living Children: 1 - Gestational Age Gestational Age by MITCHELL (wks/days): 33 Weeks and 1 Days Review of Systems - Review of Systems Constitutional: No problems Breast: No problems ENT: No problems Cardiovascular: No problems Respiratory: No problems Gastrointestinal: No problems Genitourinary: No problems Musculoskeletal: No problems Neurological: No problems Skin: No problems Vital Signs - Temperature Temperature: 98.4 F Temperature Source: Temporal Artery Scan - Pulse Pulse Oximetery Pulse Rate: 123 Pulse Assessment Method: Pulse Oximetry - Respirations Respiratory Rate: 16 Oxygen Delivery Method: Room Air O2 Sat by Pulse Oximetry: 95 - Blood Pressure Right Arm Blood Pressure: 124/74 Blood Pressure Mean: 90 Blood Pressure Source: Automatic Cuff Medical Screen Scoring - Assessment - Baby A Baseline FHR: 155 Heart Rate - NICHD Category: Category I (Normal) NST: Reactive Physician Notification - Physician Notified Physician Notified Date: 08/08/22 Physician Notified Time: 15:38 Physician: Michelle Franco Order Received: Yes (Urinalysis and culture, FFN, cervical exam) - Notification Comment Comment: Order to send urinalysis with relfex to culture, obtain an FFN and preform a cervical exam. If pt. cervix in closed disguard FFN. Maternal Triage Index - Maternal Triage Index Presenting for scheduled procedure w/no complaint: No - Stat/Priority 1 Stat Priority 1: No - Urgent/Priority 2 Urgent Priority 2: Yes Provider Notified: Dr. Franco Provider Notified Time: 15:38 Criteria Met for Priority 2: Pt. presents to triage with complaints of sharp lower abdominal/groin pain, shooting to the vaginal area occuring about every 3- 5 hours lasting around 10-15 minutes starting around 0400 this AM Disposition - Disposition OB Disposition: Discharge to home Discharge Date: 08/08/22 Discharge Time: 16:35 I agree with the RN Medical Screening Exam: Yes Case reviewed; plan agreed upon as documented in EMR&OBIX.: Yes Diagnosis: RELATED CONDITIONS, UNSPECIFIED, THIRD TRIMESTER
== END 2022-08-08 16:35 | disposition home or self-care (01) ==
LOC: FBPOP 14:35
PROVIDERS: ATTEND Obstetrics & Gynecology
DX: O26.893 Other specified pregnancy related conditions, third trimester (principal); R10.30 Lower abdominal pain, unspecified; Z3A.33 33 weeks gestation of pregnancy; Z88.0 Allergy status to penicillin; Z88.1 Allergy status to other antibiotic agents; Z88.2 Allergy status to sulfonamides; Z91.02 Food additives allergy status
CPT/HCPCS: 59025; 81001; 87086; 99213

== ENCOUNTER 2022-08-31 17:12 | Outpatient (CLI) | payer BC ==
[2022-08-31 17:45] VITALS: PULSE 125; RESP 16; TEMP 98.2
[2022-08-31 19:06] VITALS: BP 131/62
--- NOTE | 2022-09-10 06:29 | P.MSEPDOC ---
Presenting Problems - Arrival Data Date of Arrival on Unit: 08/31/22 Time of Arrival on Unit: 17:12 Mode of Transport: Ambulatory - Complaint OB-Reason for Admission/Chief Complaint: Possible Onset of Labor Comment: contractions since 1200 Medical History - Information : 3 Para: 1 Term: 1 : 0 Abortions: Spontaneous or Elective: 1 Number of Living Children: 1 - Gestational Age Gestational Age by MITCHELL (wks/days): 36 Weeks and 3 Days Review of Systems - Review of Systems Constitutional: No problems Breast: No problems ENT: No problems Cardiovascular: No problems Respiratory: No problems Gastrointestinal: No problems Genitourinary: No problems Musculoskeletal: No problems Neurological: No problems Skin: No problems Vital Signs - Temperature Temperature: 98.2 F Temperature Source: Temporal Artery Scan - Pulse Right Pulse Rate: 125 Pulse Assessment Method: Automatic Cuff - Respirations Respiratory Rate: 16 Oxygen Delivery Method: Room Air - Blood Pressure Right Arm Sitting Blood Pressure: 131/62 Blood Pressure Mean: 85 Blood Pressure Source: Automatic Cuff Medical Screen Scoring - Cervical Exam Dilation (cm): 1 Effacement (%): 0 Station: -3 Membranes: Intact - Uterine Contractions Frequency From (mins): 1 Frequency To (mins): 3 Duration From (seconds): 50 Duration To (seconds): 80 Intensity: Moderate Resting: Soft to palpation - Assessment - Baby A Baseline FHR: 140 Heart Rate - NICHD Category: Category I (Normal) NST: Reactive Physician Notification - Physician Notified Physician Notified Date: 08/31/22 Physician Notified Time: 18:45 Physician: Michelle Franco Order Received: Yes (d/c with instruction) Maternal Triage Index - Prompt/Priority 3 Prompt Priority 3: Yes Criteria Met for Priority 3: 36 3/7 weeks contractions Disposition - Disposition OB Disposition: Triage, Discharge to home, Written follow up instructions reviewed Discharge Date: 08/31/22 Discharge Time: 19:00 I agree with the RN Medical Screening Exam: Yes Case reviewed; plan agreed upon as documented in EMR&OBIX.: Yes Diagnosis: FALSE LABOR BEFORE 37 COMPLETED WEEKS OF GEST, THIRD TRI
== END 2022-08-31 19:00 | disposition home or self-care (01) ==
LOC: FBPOP 17:12
PROVIDERS: ATTEND Obstetrics & Gynecology
DX: O47.03 False labor before 37 completed weeks of gestation, third trimester (principal); Z3A.36 36 weeks gestation of pregnancy; Z88.0 Allergy status to penicillin; Z88.6 Allergy status to analgesic agent; Z88.8 Allergy status to other drugs, medicaments and biological substances; Z91.02 Food additives allergy status; Z88.2 Allergy status to sulfonamides; Z88.1 Allergy status to other antibiotic agents
CPT/HCPCS: 59025; 99213

== ENCOUNTER 2022-09-10 19:36 | Emergency (ER) | payer BC ==
[2022-09-10 19:47] VITALS: TEMP 98.1
--- NOTE | 2022-09-10 22:05 | ED ---
General Adult HPI - General Chief complaint: Shortness of Breath Stated complaint: Recheck Time Seen by Provider: 09/10/22 21:35 Source: patient, RN notes reviewed, old records reviewed Mode of arrival: ambulatory Limitations: no limitations - History of Present Illness Initial comments: Patient is a 26-year-old female who presents emergency Department with history of asthma, with prior PE with , somewhat chronic tachycardia during , whereas been on prophylactic blood thinning therapy Lovenox initially and now heparin due to her high risk of recurrent PE during her current and she is approximately 37 weeks 6 days presents emergency department complaining of shortness of breath. She is . Patient has been having some mild shortness of breath over the last few weeks particularly with activity and has noticed some weight gain as well as lower extremity swelling. Over the last 1-2 days has had worsening shortness of breath with laying down flat. Denies any paroxysmal nocturnal dyspnea. States the shortness of breath improves when sitting up. Endorses exertional shortness of breath which has been ongoing. Endorses a mild cough that is nonproductive. Denies any fevers. Endorses intermittent abdominal cramping which are contractions and are being followed by her SALES DEMONSTRATOR. Denies any vaginal bleeding or discharge. Denies any urinary complaints. Denies any nausea, vomiting, diarrhea. Denies any fevers. Denies any other acute complaints at this time. Presents over concern for her shortness of breath. Initially was seen in OB triage and sent him here for further evaluation. Has a scheduled induction next week. Patient has been watched for preeclampsia as well as she has been having some visual changes when looking up she sees black dots but her blood pressures tend to be within normal limits. - Related Data Home Medications Medication Instructions Recorded Confirmed Albuterol Inhaler [Ventolin Hfa 2 puff INHALATION RT-Q6H PRN 10/03/15 09/10/22 Inhaler] Enoxaparin [Lovenox] 40 mg SQ BID 06/07/21 09/10/22 Vit No.179/Iron/Folic 1 each PO DAILY 08/08/22 09/10/22 [ Tablet] Allergies Allergy/AdvReac Type Severity Reaction Status Date / Time cefuroxime axetil Allergy Unknown Verified 09/10/22 19:43 [From Ceftin] Penicillins Allergy Rash/Hives Verified 09/10/22 19:43 red dye Allergy Rash/Hives Verified 09/10/22 19:43 sulfamethoxazole Allergy Rash/Hives Verified 09/10/22 19:43 [From Septra] trimethoprim [From Septra] Allergy Rash/Hives Verified 09/10/22 19:43 doxycycline AdvReac Nausea & Verified 09/10/22 19:43 Vomiting levofloxacin [From Levaquin] AdvReac Unknown Verified 09/10/22 19:43 Review of Systems ROS Statement: Those systems with pertinent positive or pertinent negative responses have been documented in the HPI. Review of Systems: CONST: Denies fever EYES: Denies blurry vision ENT: Endorses nasal congestion C/V: Denies Chest pain RESP: Endorses shortness of breath GI: Denies abdominal pain : Denies dysuria SKIN: Denies rash. MSK: Denies joint pain. NEURO: Denies headache ROS Other: All systems not noted in ROS Statement are negative. Past Medical History Past Medical History: Asthma, Pulmonary Embolus (PE) Additional Past Medical History / Comment(s): PCOS, PE w/last , miscarriage History of Any Multi-Drug Resistant Organisms: None Reported Past Surgical History: Cholecystectomy, Ear Surgery Additional Past Surgical History / Comment(s): wisdom teeth removed 2013, D and C Past Anesthesia/Blood Transfusion Reactions: No Reported Reaction Past Psychological History: No Psychological Hx Reported Smoking Status: Never smoker Past Alcohol Use History: None Reported Past Drug Use History: None Reported - Past Family History Father Family Medical History: Diabetes Mellitus, Hyperlipidemia, Hypertension Mother Family Medical History: Hypertension, Rheumatoid Arthritis (RA) General Exam - General Exam Comments Initial Comments: General: Appears in no acute distress. HEAD: Normal with no signs of head trauma. EYES: PERRLA, EOMI, conjunctiva normal, no discharge. ENT: Hearing grossly intact, normal oropharynx. RESPIRATORY: Clear breath sounds bilaterally. No wheezes, rales, or rhonchi. No increased work of breathing. No hypoxia on room air at rest. C/V: Tachycardic with regular rhythm. S1 and S2 auscultated, minimal pitting edema, peripheral pulses 2+ and intact throughout ABD: Abdomen is soft, nontender. Gravid uterus. EXT: Normal range of motion, no obvious deformity SKIN: No rashes or lesions observed on exposed skin. NEURO: Alert and oriented 4. Limitations: no limitations Course Vital Signs 09/10/22 09/10/22 09/10/22 19:44 22:18 23:59 Temperature 98.1 F Pulse Rate 119 H 116 H 97 Respiratory 18 18 18 Rate Blood Pressure 122/89 108/80 118/80 O2 Sat by Pulse 94 L 97 97 Oximetry 09/11/22 02:12 Temperature Pulse Rate 80 Respiratory 17 Rate Blood Pressure 115/78 O2 Sat by Pulse 98 Oximetry Medical Decision Making - Medical Decision Making Was pt. sent in by a medical professional or institution (, PA, GRIEVANCE AND APPEALS SPECIALIST, urgent care, hospital, or detention...) When possible be specific @ -No Did you speak to anyone other than the patient for history (EMS, parent, family, police, friend...)? What history was obtained from this source @ -No Did you review nursing and triage notes (agree or disagree)? Why? @ -I reviewed and agree with nursing and triage notes Were old charts reviewed (outside hosp., previous admission, EMS record, old EKG, old radiological studies, urgent care reports/EKG's, detention records)? Report findings @ -Vital signs from visits dating back to June 16 or reviewed, and patient is always tachycardic. Differential Diagnosis (chest pain, altered mental status, abdominal pain women, abdominal pain men, vaginal bleeding, weakness, fever, dyspnea, syncope, headache, dizziness, GI bleed, back pain, seizure, CVA, palpatations, mental health, musculoskeletal)? @ -Differential Dyspnea: Coronary syndrome, arrhythmia, tamponade, asthma, COPD, pulmonary embolism, p neumonia, pneumothorax, pulmonary effusion, anaphylaxis, diabetic ketoacidosis, flailed chest, pulmonary contusion, diaphragmatic rupture, anemia, neuromuscular, preeclampsia, polyhydramnios, dyspnea secondary to this is not meant to be an all-inclusive list. EKG interpreted by me (3pts min.). @ -As above X-rays interpreted by me (1pt min.). @ -Chest x-ray reveals no obvious acute cardiopulmonary process. No evidence of volume overload. CT interpreted by me (1pt min.). @ -None done U/S interpreted by me (1pt. min.). @ -None done What testing was considered but not performed or refused? (CT, X-rays, U/S, labs)? Why? @ -None What meds were considered but not given or refused? Why? @ -None Did you discuss the management of the patient with other professionals (professionals i.e. , PA, GRIEVANCE AND APPEALS SPECIALIST, lab, RT, psych nurse, social worker clinical, radio interference investigator, teacher, audit officer, telehealth case manager)? Give summary @ -I discussed the case with Dr. Kern and we did review the results. She was in agreement that patient can be discharged home with close follow-up with Dr. Franco. Was smoking cessation discussed for >3mins.? @ -No Was critical care preformed (if so, how long)? @ -No Were there social determinants of health that impacted care today? How? (Homelessness, low income, unemployed, alcoholism, drug addiction, transporta tion, low edu. Level, literacy, decrease access to med. care, fdc, rehab)? @ -No Was there de-escalation of care discussed even if they declined (Discuss DNR or withdrawal of care, Hospice)? DNR status @ -No What co-morbidities impacted this encounter? (DM, HTN, Smoking, COPD, CAD, Cancer, CVA, ARF, Chemo, Hep., AIDS, mental health diagnosis, sleep apnea, morbid obesity)? @ -Current , history of PE on prophylactic heparin Was patient admitted / discharged? Hospital course, mention meds given and route, prescriptions, significant lab abnormalities, going to OR and other pertinent info. @ -Based on the patient's presentation and physical exam, I'm concerned for possible cardiopulmonary etiology for her current symptoms but cannot rule out pre-eclampsia. Blood pressure obtained when the patient was in OB triage was within acceptable limits and she was sent down here for further evaluation. She has been closely monitored due to her PE history as well as the concern for possible development of preeclampsia, as her blood pressures have been bor derline and she has been having some visual changes when looking up she sees black dots. This has been ongoing. We will obtain a pulmonary labs as well as eclampsia labs. We will closely monitor the patient. We'll reobtain vital signs here in the department. She was in agreement this plan. Patient was already seen in OB triage to obtain a basic set of vital signs to screen for preeclampsia. She was cleared by OB triage and sent to the emergency department for further evaluation. This all occurred prior to me evaluating the patient. Patient's vital signs remained within acceptable limits. No hypertension. Patient's chest x-ray reveals no evidence of volume overload. Laboratory studies are remarkable for slight leukocytosis of 12. Troponin is undetectable. BNP is within normal limits. Remainder of the labs are unremarkable. Uric acid and LDH as well as other preeclampsia labs are within acceptable limits as well. Patient's venous duplex ultrasound negative for DVTs On reevaluation, patient remains a symptomatic. Ambulatory pulse ox is within normal limits. When lying flat, pulse ox is also within normal limits. I did discuss the results with her. We both agreed that I will contact the on-call SALES DEMONSTRATOR and discussed results prior to discharge. We did discuss her low risk for PE as she has been receiving empiric prophylactic therapy throughout this p regnancy. She was in agreement with this plan. There was a long delay in getting in contact with Dr. Kern which did delay discharge.I discussed the case with Dr. Kern and we did review the results. She was in agreement that patient can be discharged home with close follow-up with Dr. Franco. I discussed this with the patient who was in agreement this plan. Strict return precautions discussed. I instructed the patient to follow up with their PCP in the next 1-3 days. . I explained that the patient should return to the emergency department if they experience any worsening symptoms. Strict return precautions were discussed with the patient. The patient expressed understanding of these instructions. I answered all questions that the patient had. The patient was discharged home in good condition with their prescriptions and follow up information. Undiagnosed new problem with uncertain prognosis? @ -No Drug Therapy requiring intensive monitoring for toxicity (Heparin, Nitro, Insulin, Cardizem)? @ -No Were any procedures done? @ -No Diagnosis/symptom? @ -Dyspnea in Acute, or Chronic, or Acute on Chronic? @ -Acute on chronic Uncomplicated (without systemic symptoms) or Complicated (systemic symptoms)? @ -Complicated Side effects of treatment? @ -none Exacerbation, Progression, or Severe Exacerbation] @ -no Poses a threat to life or bodily function? @ -no - Lab Data Result diagrams: 09/10/22 21:53 09/10/22 21:53 Lab Results 09/10/22 09/10/22 09/10/22 Range/Units 21:53 21:53 21:53 WBC 12.0 H (3.8-10.6) k/uL RBC 4.64 (3.80-5.40) m/uL Hgb 13.1 (11.4-16.0) gm/dL Hct 38.6 (34.0-46.0) % MCV 83.3 (80.0-100.0) fL MCH 28.3 (25.0-35.0) pg MCHC 34.0 (31.0-37.0) g/dL RDW 14.2 (11.5-15.5) % Plt Count 296 (150-450) k/uL MPV 8.4 Neutrophils % 78 % Lymphocytes % 12 % Monocytes % 6 % Eosinophils % 2 % Basophils % 1 % Neutrophils # 9.4 H (1.3-7.7) k/uL Lymphocytes # 1.5 (1.0-4.8) k/uL Monocytes # 0.7 (0-1.0) k/uL Eosinophils # 0.3 (0-0.7) k/uL Basophils # 0.1 (0-0.2) k/uL PT 9.3 (9.0-12.0) sec INR 0.9 (<1.2) APTT 22.6 (22.0-30.0) sec Sodium 135 L (137-145) mmol/L Potassium 4.0 (3.5-5.1) mmol/L Chloride 107 (98-107) mmol/L Carbon Dioxide 19 L (22-30) mmol/L Anion Gap 9 mmol/L BUN 7 (7-17) mg/dL Creatinine 0.54 (0.52-1.04) mg/dL Est GFR (CKD-EPI)AfAm >90 (>60 ml/min/1.73 sqM) Est GFR (CKD-EPI)NonAf >90 (>60 ml/min/1.73 sqM) Glucose 85 (74-99) mg/dL Uric Acid (3.7-7.4) mg/dL Calcium 8.9 (8.4-10.2) mg/dL Magnesium 1.8 (1.6-2.3) mg/dL Total Bilirubin 0.3 (0.2-1.3) mg/dL AST 21 (14-36) U/L ALT 17 (4-34) U/L Alkaline Phosphatase 222 H (38-126) U/L Lactate Dehydrogenase (120-246) U/L Troponin I (0.000-0.034) ng/mL NT-Pro-B Natriuret Pep pg/mL Total Protein 6.7 (6.3-8.2) g/dL Albumin 3.6 (3.5-5.0) g/dL Urine Color Urine Appearance (Clear) Urine pH (5.0-8.0) Ur Specific Lotus (1.001-1.035) Urine Protein (Negative) Urine Glucose (UA) (Negative) Urine Ketones (Negative) Urine Blood (Negative) Urine Nitrite (Negative) Urine Bilirubin (Negative) Urine Urobilinogen (<2.0) mg/dL Ur Leukocyte Esterase (Negative) Urine RBC (0-5) /hpf Urine WBC (0-5) /hpf Ur Squamous Epith Cells (0-4) /hpf Urine Bacteria (None) /hpf Urine Mucus (None) /hpf Influenza Type A (PCR) (Not Detectd) Influenza Type B (PCR) (Not Detectd) RSV (PCR) (Not Detectd) SARS-CoV-2 (PCR) (Not Detectd) 09/10/22 09/10/22 09/10/22 Range/Units 21:53 21:53 22:00 WBC (3.8-10.6) k/uL RBC (3.80-5.40) m/uL Hgb (11.4-16.0) gm/dL Hct (34.0-46.0) % MCV (80.0-100.0) fL MCH (25.0-35.0) pg MCHC (31.0-37.0) g/dL RDW (11.5-15.5) % Plt Count (150-450) k/uL MPV Neutrophils % % Lymphocytes % % Monocytes % % Eosinophils % % Basophils % % Neutrophils # (1.3-7.7) k/uL Lymphocytes # (1.0-4.8) k/uL Monocytes # (0-1.0) k/uL Eosinophils # (0-0.7) k/uL Basophils # (0-0.2) k/uL PT (9.0-12.0) sec INR (<1.2) APTT (22.0-30.0) sec Sodium (137-145) mmol/L Potassium (3.5-5.1) mmol/L Chloride (98-107) mmol/L Carbon Dioxide (22-30) mmol/L Anion Gap mmol/L BUN (7-17) mg/dL Creatinine (0.52-1.04) mg/dL Est GFR (CKD-EPI)AfAm (>60 ml/min/1.73 sqM) Est GFR (CKD-EPI)NonAf (>60 ml/min/1.73 sqM) Glucose (74-99) mg/dL Uric Acid 4.0 (3.7-7.4) mg/dL Calcium (8.4-10.2) mg/dL Magnesium (1.6-2.3) mg/dL Total Bilirubin (0.2-1.3) mg/dL AST (14-36) U/L ALT (4-34) U/L Alkaline Phosphatase (38-126) U/L Lactate Dehydrogenase 188 (120-246) U/L Troponin I <0.012 (0.000-0.034) ng/mL NT-Pro-B Natriuret Pep 16 pg/mL Total Protein (6.3-8.2) g/dL Albumin (3.5-5.0) g/dL Urine Color Urine Appearance (Clear) Urine pH (5.0-8.0) Ur Specific Lotus (1.001-1.035) Urine Protein (Negative) Urine Glucose (UA) (Negative) Urine Ketones (Negative) Urine Blood (Negative) Urine Nitrite (Negative) Urine Bilirubin (Negative) Urine Urobilinogen (<2.0) mg/dL Ur Leukocyte Esterase (Negative) Urine RBC (0-5) /hpf Urine WBC (0-5) /hpf Ur Squamous Epith Cells (0-4) /hpf Urine Bacteria (None) /hpf Urine Mucus (None) /hpf Influenza Type A (PCR) (Not Detectd) Influenza Type B (PCR) (Not Detectd) RSV (PCR) (Not Detectd) SARS-CoV-2 (PCR) (Not Detectd) 09/10/22 09/10/22 Range/Units 22:08 22:08 WBC (3.8-10.6) k/uL RBC (3.80-5.40) m/uL Hgb (11.4-16.0) gm/dL Hct (34.0-46.0) % MCV (80.0-100.0) fL MCH (25.0-35.0) pg MCHC (31.0-37.0) g/dL RDW (11.5-15.5) % Plt Count (150-450) k/uL MPV Neutrophils % % Lymphocytes % % Monocytes % % Eosinophils % % Basophils % % Neutrophils # (1.3-7.7) k/uL Lymphocytes # (1.0-4.8) k/uL Monocytes # (0-1.0) k/uL Eosinophils # (0-0.7) k/uL Basophils # (0-0.2) k/uL PT (9.0-12.0) sec INR (<1.2) APTT (22.0-30.0) sec Sodium (137-145) mmol/L Potassium (3.5-5.1) mmol/L Chloride (98-107) mmol/L Carbon Dioxide (22-30) mmol/L Anion Gap mmol/L BUN (7-17) mg/dL Creatinine (0.52-1.04) mg/dL Est GFR (CKD-EPI)AfAm (>60 ml/min/1.73 sqM) Est GFR (CKD-EPI)NonAf (>60 ml/min/1.73 sqM) Glucose (74-99) mg/dL Uric Acid (3.7-7.4) mg/dL Calcium (8.4-10.2) mg/dL Magnesium (1.6-2.3) mg/dL Total Bilirubin (0.2-1.3) mg/dL AST (14-36) U/L ALT (4-34) U/L Alkaline Phosphatase (38-126) U/L Lactate Dehydrogenase (120-246) U/L Troponin I (0.000-0.034) ng/mL NT-Pro-B Natriuret Pep pg/mL Total Protein (6.3-8.2) g/dL Albumin (3.5-5.0) g/dL Urine Color Yellow Urine Appearance Cloudy H (Clear) Urine pH 6.0 (5.0-8.0) Ur Specific Lotus 1.030 (1.001-1.035) Urine Protein 1+ H (Negative) Urine Glucose (UA) Negative (Negative) Urine Ketones Trace H (Negative) Urine Blood Negative (Negative) Urine Nitrite Negative (Negative) Urine Bilirubin Negative (Negative) Urine Urobilinogen 2.0 (<2.0) mg/dL Ur Leukocyte Esterase Moderate H (Negative) Urine RBC 1 (0-5) /hpf Urine WBC 9 H (0-5) /hpf Ur Squamous Epith Cells 13 H (0-4) /hpf Urine Bacteria Rare H (None) /hpf Urine Mucus Many H (None) /hpf Influenza Type A (PCR) Not Detected (Not Detectd) Influenza Type B (PCR) Not Detected (Not Detectd) RSV (PCR) Not Detected (Not Detectd) SARS-CoV-2 (PCR) Not Detected (Not Detectd) - EKG Data -: EKG Interpreted by Me EKG Comments: 12-lead Electrocardiogram Interpretation Note EKG was reviewed and interpreted by myself. 12-lead ECG performed at 2315 is interpreted by me as revealing sinus tachycardia at a rate of 115 beats per minute. [place] is normal. [place] interval is 139 ms, QRS duration is 71 ms, QTc is 376 ms.. There were no ST or T wave abnormalities to suggest myocardial ischemia or injury. R wave progression across the precordium was satisfactory. By my interpretation this EKG is non-diagnostic for acute ischemia. When compared with EKG from November 2017, no significant change. Disposition Clinical Impression: Shortness of breath during Disposition: HOME SELF-CARE Condition: Good Instructions (If sedation given, give patient instructions): (ED) Is patient prescribed a controlled substance at d/c from ED?: No Referrals: Andrew Garza MD [Primary Care Provider] - 1-2 days Michelle Franco DO [Doctor of Osteopathic Medicine] - 1-2 days Time of Disposition: 02:00
[2022-09-10 22:25] LABS: Basophils # (A) 0.1 k/uL (0-0.2); Basophils % (A) 1 %; Eosinophils # (A) 0.3 k/uL (0-0.7); Eosinophils % (A) 2 %; HCT 38.6 % (34.0-46.0); HGB 13.1 gm/dL (11.4-16.0); Lymphocytes # (A) 1.5 k/uL (1.0-4.8); Lymphocytes % (A) 12 %; MCH 28.3 pg (25.0-35.0); MCV 83.3 fL (80.0-100.0); Mean Platelet Volume 8.4; Monocytes # (A) 0.7 k/uL (0-1.0); Monocytes % (A) 6 %; Neutrophils # (A) 9.4 k/uL (1.3-7.7); Neutrophils % (A) 78 %; Platelet Count 296 k/uL (150-450); RBC 4.64 m/uL (3.80-5.40); RDW 14.2 % (11.5-15.5)
[2022-09-10 22:31] LABS: INR 0.9 (<1.2); Partial Thromboplastin Time 22.6 sec (22.0-30.0); Prothrombin Time 9.3 sec (9.0-12.0)
--- NOTE | 2022-09-10 22:35 | XR ---
EXAMINATION TYPE: XR chest 2V DATE OF EXAM: 09/10/2022 10:31 PM COMPARISON: Chest radiographs from 12/16/2017. TECHNIQUE: XR chest 2V Frontal and lateral views of the chest. CLINICAL INDICATION:Female, 26 years old with history of difficulty breathing; FINDINGS: Lungs/Pleura: There is no evidence of pleural effusion, focal consolidation, or pneumothorax. Pulmonary vascularity: Unremarkable. Heart/mediastinum: Cardiomediastinal silhouette is unremarkable. Musculoskeletal: No acute osseous pathology. IMPRESSION: No acute cardiopulmonary disease/process.
[2022-09-10 22:41] LABS: Bacteria,Urine Rare /hpf; Mucus,Urine Many /hpf; RBC,Urine 1 /hpf (0-5); Squamous Epithelial Cell,Urine 13 /hpf (0-4); WBC,Urine 9 /hpf (0-5)
[2022-09-10 22:45] LABS: Appearance,Urine Cloudy (Clear); Bilirubin,Urine Negative (Negative); Blood,Urine Negative (Negative); Color,Urine Yellow; Glucose,Urine (UA) Negative (Negative); Ketones,Urine Trace (Negative); Leukocyte Esterase,Urine Moderate (Negative); Nitrite,Urine Negative (Negative); Protein,Urine 1+ (Negative)
[2022-09-10 22:48] LABS: ALT 17 U/L (4-34); AST 21 U/L (14-36); African American GFR (CKD) >90 (>60 ml/min/1.73 sqM); Albumin 3.6 g/dL (3.5-5.0); Alkaline Phosphatase 222 U/L (38-126); Anion Gap 9 mmol/L; Blood Urea Nitrogen 7 mg/dL (7-17); Calcium 8.9 mg/dL (8.4-10.2); Carbon Dioxide 19 mmol/L (22-30); Chloride 107 mmol/L (98-107); Glucose 85 mg/dL (74-99); Magnesium 1.8 mg/dL (1.6-2.3); Non-African American GFR(CKD) >90 (>60 ml/min/1.73 sqM); Sodium 135 mmol/L (137-145); Total Bilirubin 0.3 mg/dL (0.2-1.3); Total Protein 6.7 g/dL (6.3-8.2)
--- NOTE | 2022-09-10 23:20 | US ---
EXAMINATION TYPE: US venous doppler duplex LE DATE OF EXAM: 09/10/2022 9:50 PM COMPARISON: 07/23/17 CLINICAL INDICATION: Female, 26 years old with history of leg swelling, eval for dvt; Hx of PE in las t pg. On heparin. SIDE PERFORMED: Bilateral TECHNIQUE: The lower extremity deep venous system is examined utilizing real time linear array sonog baron with graded compression, doppler sonography and color-flow sonography. VESSELS IMAGED: Common Femoral Vein Deep Femoral Vein Greater Saphenous Vein * Femoral Vein Popliteal Vein Small Saphenous Vein * Proximal Calf Veins (* superficial vessels) Grayscale, color doppler, spectral doppler imaging performed of the deep veins of the lower extremiti es. There is normal flow, compressibility, vascular waveforms. Right Leg: Negative for DVT. Left Leg: Negative for DVT *Rouleaux flow visualized in bilateral legs IMPRESSION: No deep venous thrombosis of the bilateral lower extremities.
--- NOTE | 2022-09-10 23:21 | US ---
EXAMINATION TYPE: US OB limited DATE OF EXAM: 09/10/2022 COMPARISON: NONE CLINICAL INDICATION: Female, 26 years old with history of intermittent contractions. eval for polyhyd ramnios; REBA only EXAM PERFORMED: Transabdominal (TA) GESTATIONAL AGE / DATING Physician Established: (37 weeks/6 days) EDC: 09/25/22 No growth performed on today?s study per ordering physician SURVEY REBA: 14.2 cm Normal Ultrasound evidence of premature rupture of membranes? No PRESENTATION: Vertex LIE: Longitudinal HEART RATE: 154 bpm RHYTHM: Normal IMPRESSION: Single live intrauterine gestation. REBA is within normal limits.
[2022-09-11 02:12] VITALS: BP 115/78; PULSE 80; RESP 17
== END 2022-09-11 02:12 | disposition home or self-care (01) ==
LOC: EC 19:36
DX: O99.513 Diseases of the respiratory system complicating pregnancy, third trimester (principal); R06.02 Shortness of breath; J45.909 Unspecified asthma, uncomplicated; Z88.2 Allergy status to sulfonamides; Z88.1 Allergy status to other antibiotic agents; Z88.0 Allergy status to penicillin; Z88.8 Allergy status to other drugs, medicaments and biological substances; Z79.899 Other long term (current) drug therapy; Z20.822 Contact with and (suspected) exposure to COVID-19
CPT/HCPCS: 36415; 71046; 76815; 80053; 81001; 83615; 83735; 83880; 84484; 84550; 85025; 85610; 85730; 87636; 93005; 93970; 99285

== ENCOUNTER 2022-09-13 10:29 | Inpatient (IN) | payer BC ==
[2022-09-13] MEDS ORDERED: TERBUTALINE 1 MG/ML VIAL SQ PRN (11:14)
[2022-09-13] MEDS ORDERED: METHYLERGONOVINE 0.2 MG/ML 1 ML AMP IM PRN (11:14)
[2022-09-13] MEDS ORDERED: LIDOCAINE 0.5% (PF) 5 MG/ML (50 ML SDV) SQ PRN (11:14)
[2022-09-13] MEDS ORDERED: TRANEXAMIC ACID IN NACL,ISO-OS 1,000 MG in EMPTY BAG 1 BAG IV PRN (11:14)
[2022-09-13] MEDS ORDERED: OXYTOCIN 10 UNIT/ML 1 ML VIAL IM PRN (11:14)
[2022-09-13] MEDS ORDERED: miSOPROStoL 200 MCG TAB PO PRN (11:14)
[2022-09-13] MEDS ORDERED: CARBOPROST TROMETHAMINE 250 MCG/ML 1 ML AMP IM PRN (11:14)
[2022-09-13] MEDS ORDERED: OXYTOCIN 30 UNITS/500 ML NS 30 UNIT in SALINE 1 500ML.BAG IV SCH ×2 (11:15→17:00)
[2022-09-13] MEDS: LACTATED RINGERS 1,000 ML IV SCH ×2 (11:49→12:59)
[2022-09-13 11:52] LABS: Basophils % (A) 0 %; Eosinophils # (A) 0.2 k/uL (0-0.7); Eosinophils % (A) 2 %; HCT 37.8 % (34.0-46.0); HGB 12.6 gm/dL (11.4-16.0); Lymphocytes # (A) 1.5 k/uL (1.0-4.8); Lymphocytes % (A) 16 %; MCHC 33.5 g/dL (31.0-37.0); MCV 83.7 fL (80.0-100.0); Mean Platelet Volume 8.3; Monocytes # (A) 0.5 k/uL (0-1.0); Monocytes % (A) 5 %; Neutrophils # (A) 7.2 k/uL (1.3-7.7); Neutrophils % (A) 75 %; Platelet Count 306 k/uL (150-450); RBC 4.51 m/uL (3.80-5.40); RDW 14.2 % (11.5-15.5); WBC 9.6 k/uL (3.8-10.6)
[2022-09-13 12:00] LABS: Appearance,Urine Clear (Clear); Bacteria,Urine Rare /hpf; Bilirubin,Urine Negative (Negative); Blood,Urine Negative (Negative); Color,Urine Yellow; Glucose,Urine (UA) Negative (Negative); Ketones,Urine Negative (Negative); Leukocyte Esterase,Urine Small (Negative); Mucus,Urine Rare /hpf; Nitrite,Urine Negative (Negative); PH, Urine 6.5 (5.0-8.0); Protein,Urine Negative (Negative); RBC,Urine 3 /hpf (0-5); Specific Gravity,Urine 1.011 (1.001-1.035); Squamous Epithelial Cell,Urine 3 /hpf (0-4); Urobilinogen,Urine <2.0 mg/dL (<2.0); WBC,Urine 2 /hpf (0-5)
[2022-09-13 12:06] LABS: INR 0.9 (<1.2); Partial Thromboplastin Time 23.2 sec (22.0-30.0); Prothrombin Time 9.3 sec (9.0-12.0)
[2022-09-13] MEDS ORDERED: SODIUM CHLORIDE 0.9% 100 ML BAG ONE (12:19)
[2022-09-13] MEDS ORDERED: fentaNYL (PF) 50 MCG/ML 5 ML AMP ONE (12:19)
[2022-09-13] MEDS ORDERED: ROPIVACAINE 5 MG/ML 20 ML AMPULE ONE (12:19)
[2022-09-13 12:24] LABS: ALT 23 U/L (4-34); AST 30 U/L (14-36); African American GFR (CKD) >90 (>60 ml/min/1.73 sqM); Blood Urea Nitrogen 5 mg/dL (7-17); LDH 180 U/L (120-246); Non-African American GFR(CKD) >90 (>60 ml/min/1.73 sqM); Uric Acid 4.2 mg/dL (3.7-7.4)
--- NOTE | 2022-09-13 12:46 | P.HPOB ---
History of Present Illness H&P Date: 09/13/22 Chief Complaint: SROM 26 year old presents at 38 weeks 2 days with spontaneous rupture of membranes this morning. heart tones 140 with moderate variability and stephanie ctive. Her cervix is 3/80/-2. She is armani irregularly. Review of Systems All systems: negative Constitutional: Denies chills, Denies fever Eyes: denies blurred vision, denies pain Ears, nose, mouth and throat: Denies headache, Denies sore throat Cardiovascular: Denies chest pain, Denies shortness of breath Respiratory: Denies cough Gastrointestinal: Denies abdominal pain, Denies diarrhea, Denies nausea, Denies vomiting Genitourinary: Denies dysuria, Denies hematuria Musculoskeletal: Denies myalgias Integumentary: Denies pruritus, Denies rash Neurological: Denies numbness, Denies weakness Psychiatric: Denies anxiety, Denies depression Endocrine: Denies fatigue, Denies weight change Past Medical History Past Medical History: Asthma, Pulmonary Embolus (PE) Additional Past Medical History / Comment(s): PCOS, PE w/last , miscarriage History of Any Multi-Drug Resistant Organisms: None Reported Past Surgical History: Cholecystectomy, Ear Surgery Additional Past Surgical History / Comment(s): wisdom teeth removed 2013, D and C Past Anesthesia/Blood Transfusion Reactions: No Reported Reaction Smoking Status: Never smoker - Past Family History Father Family Medical History: Diabetes Mellitus, Hyperlipidemia, Hypertension Mother Family Medical History: Hypertension, Rheumatoid Arthritis (RA) Medications and Allergies Home Medications Medication Instructions Recorded Confirmed Type Albuterol Inhaler [Ventolin Hfa 2 puff INHALATION RT-Q6H PRN 10/03/15 09/13/22 History Inhaler] Enoxaparin [Lovenox] 40 mg SQ BID 06/07/21 09/13/22 History Vit No.179/Iron/Folic 1 each PO DAILY 08/08/22 09/13/22 History [ Tablet] Allergies Allergy/AdvReac Type Severity Reaction Status Date / Time cefuroxime axetil Allergy Unknown Verified 09/13/22 10:58 [From Ceftin] Penicillins Allergy Rash/Hives Verified 09/13/22 10:58 red dye Allergy Rash/Hives Verified 09/13/22 10:58 sulfamethoxazole Allergy Rash/Hives Verified 09/13/22 10:58 [From Septra] trimethoprim [From Septra] Allergy Rash/Hives Verified 09/13/22 10:58 doxycycline AdvReac Nausea & Verified 09/13/22 10:58 Vomiting levofloxacin [From Levaquin] AdvReac Unknown Verified 09/13/22 10:58 Exam Osteopathic Statement: *. No significant issues noted on an osteopathic structural exam other than those noted in the History and Physical/Consult. Vital Signs Temp Pulse Resp BP Pulse Ox 09/13/22 10:57 97.5 F L 82 16 142/90 98 Intake and Output 09/12/22 09/13/22 09/13/22 22:59 06:59 14:59 Other: Weight 117.48 kg HEart: RRR Lungs: CTAB Abdomen: soft, nontender Extremeties: neg yanci's Results Result Diagrams: 09/13/22 11:30 09/13/22 11:30 Abnormal Lab Results - Last 24 Hours (Table) 09/13/22 09/13/22 Range/Units 11:30 11:34 BUN 5 L (7-17) mg/dL Ur Leukocyte Esterase Small H (Negative) Urine Bacteria Rare H (None) /hpf Urine Mucus Rare H (None) /hpf Assessment and Plan (1) 38 weeks gestation of Current Visit: Yes Status: Acute Code(s): Z3A.38 - 38 WEEKS GESTATION OF SNOMED Code(s): 79304501 (2) Spontaneous rupture of membranes Current Visit: Yes Status: Acute Code(s): [id number] - SNOMED Code(s): 316435949 (3) History of pulmonary embolus during Current Visit: No Status: Acute Code(s): Z86.711 - PERSONAL HISTORY OF PULMONARY EMBOLISM; Z87.59 - PERSONAL HISTORY OF COMP OF PREG, CHLDBRTH AND THE PUERP SNOMED Code(s): 364490562 Plan: 1. admit to [facility] 2. epidural 3. expectant management 4. anticipate normal vaginal delivery
[2022-09-13 13:33] LABS: Creatinine,Urine Random 84.6 mg/dL; Protein/Creatinine Ratio,Urine 0.13
[2022-09-13] MEDS ORDERED: LANOLIN CREAM 5 GM TUBE TOPICAL PRN (16:52)
[2022-09-13] MEDS ORDERED: ZOLPIDEM 5 MG TAB PO PRN (16:52)
[2022-09-13] MEDS ORDERED: SIMETHICONE 80 MG CHEWABLE PO PRN (16:52)
[2022-09-13] MEDS ORDERED: BENZOCAINE/MENTHOL SPRAY 1 GM/SPRAY AEROSOL TOPICAL PRN (16:52)
[2022-09-13] MEDS ORDERED: HYDROCORTISONE 2.5% RECTAL CREAM 30 GM TUBE RECTAL PRN (16:52)
[2022-09-13] MEDS ORDERED: diphenhydrAMINE 50 MG/ML 1 ML VIAL IVP PRN ×2 (16:52)
[2022-09-13] MEDS ORDERED: diphenhydrAMINE 50 MG CAP PO PRN (16:52)
[2022-09-13] MEDS ORDERED: diphenhydrAMINE 25 MG CAP PO PRN (16:52)
--- NOTE | 2022-09-13 16:56 | P.PROBDLV ---
Vaginal Delivery Note - . Vaginal Delivery Note: 26 year old presents at 38 weeks 2 days with spontaneous rupture of membranes this morning at 9:30. heart tones 140 with moderate variability and reactive. Her cervix is 3/80/-2. She is armani irregularly. When she is admitted she got an epidural. She was comfortable with the epidural and progressed throughout the day. Her cervix was completely dilated at 1511. She pushed, and delivered a viable female infant over intact perineum under epidural anesthesia at 1541. Head delivered straight OP, anterior shoulder delivered gentle downward guidance followed by posterior shoulder and rest of body. Nose and mouth bulb suctioned, cord clamped and cut, infant placed mother's abdomen. Apgars 9, 9, weight 7 lbs. 5 oz. Placenta delivered spontaneously, intact with three-vessel cord at 1543. Vagina, cervix, perineum inspected. Second-degree midline laceration was repaired with 3-0 Vicryl. Estimated blood loss 125 mL. Mother and baby in stable condition.
[2022-09-13] MEDS: IBUPROFEN 600 MG TAB PO PRN (17:48)
[2022-09-13] MEDS: SENNOSIDES-DOCUSATE SODIUM 1 EACH TAB PO SCH (20:15)
[2022-09-13] MEDS: ACETAMINOPHEN TAB 325 MG TAB PO PRN (20:25)
[2022-09-14 05:45] LABS: Basophils % (A) 0 %; Eosinophils # (A) 0.1 k/uL (0-0.7); Eosinophils % (A) 1 %; HCT 33.6 % (34.0-46.0); HGB 11.2 gm/dL (11.4-16.0); Lymphocytes # (A) 1.5 k/uL (1.0-4.8); Lymphocytes % (A) 15 %; MCH 28.8 pg (25.0-35.0); MCHC 33.3 g/dL (31.0-37.0); MCV 86.5 fL (80.0-100.0); Mean Platelet Volume 8.4; Monocytes # (A) 0.6 k/uL (0-1.0); Monocytes % (A) 6 %; Neutrophils # (A) 7.5 k/uL (1.3-7.7); Neutrophils % (A) 76 %; Platelet Count 251 k/uL (150-450); RBC 3.89 m/uL (3.80-5.40); RDW 14.4 % (11.5-15.5)
[2022-09-14] MEDS: IBUPROFEN 600 MG TAB PO PRN (06:28)
[2022-09-14 08:53] VITALS: RESP 20
[2022-09-14] MEDS: SENNOSIDES-DOCUSATE SODIUM 1 EACH TAB PO SCH (08:55)
[2022-09-14] MEDS ORDERED: ENOXAPARIN 40 MG/0.4 ML SYRINGE SQ SCH (09:00)
[2022-09-14] MEDS: ACETAMINOPHEN TAB 325 MG TAB PO PRN ×2 (09:05→15:24)
--- NOTE | 2022-09-14 09:33 | P.DS ---
Providers Date of admission: 09/13/22 10:59 Expected date of discharge: 09/14/22 Attending physician: Michelle Franco Primary care physician: Stated None - Discharge Diagnosis(es) (1) 38 weeks gestation of Current Visit: Yes Status: Resolved (2) Spontaneous rupture of membranes Current Visit: Yes Status: Resolved (3) History of pulmonary embolus during Current Visit: No Status: Chronic Hospital Course: Patient presented with spontaneous rupture membranes and in labor. She underwent a normal vaginal delivery. course was uncomplicated. She denies nausea, vomiting, chest pain, shortness of breath or calf pain. Patient is on Lovenox for history of a DVT. She has no signs of DVT currently. She was restarted on her Lovenox was morning. She will be discharged home day #1 in stable condition to follow-up with Dr. Franco in 6 weeks. Plan - Discharge Summary New Discharge Prescriptions: No Action Albuterol Inhaler [Ventolin Hfa Inhaler] 2 puff INHALATION RT-Q6H PRN PRN Reason: Shortness Of Breath Enoxaparin [Lovenox] 40 mg SQ BID Vit No.179/Iron/Folic [ Tablet] 1 each PO DAILY Discharge Medication List Albuterol Inhaler [Ventolin Hfa Inhaler] 2 puff INHALATION RT-Q6H PRN 10/03/15 [History] Enoxaparin [Lovenox] 40 mg SQ BID 06/07/21 [History] Vit No.179/Iron/Folic [ Tablet] 1 each PO DAILY 08/08/22 [History] Follow up Appointment(s)/Referral(s): Michelle Franco DO [Doctor of Osteopathic Medicine] - 6 Weeks Sari Kern DO [Doctor of Osteopathic Medicine] - 1 Week (dr franco in 6 weeks) Discharge Disposition: HOME SELF-CARE
[2022-09-14 16:09] VITALS: BP 120/80; PULSE 109; TEMP 97.6
== END 2022-09-14 18:11 | disposition home or self-care (01) | DRG 807 ==
LOC: FBPOP 10:29 → 4FBP 10:59
PROVIDERS: ADMIT Obstetrics & Gynecology; ATTEND Obstetrics & Gynecology
PROC: 10E0XZZ Delivery of Products of Conception, External Approach (ICD-10-PCS; principal; 2022-09-13)
PROC: 0KQM0ZZ Repair Perineum Muscle, Open Approach (ICD-10-PCS; principal; 2022-09-13)
DX: O70.1 Second degree perineal laceration during delivery (principal); Z37.0 Single live birth; O99.52 Diseases of the respiratory system complicating childbirth; J45.909 Unspecified asthma, uncomplicated; O99.284 Endocrine, nutritional and metabolic diseases complicating childbirth; E28.2 Polycystic ovarian syndrome; Z3A.38 38 weeks gestation of pregnancy; Z86.711 Personal history of pulmonary embolism; Z86.718 Personal history of other venous thrombosis and embolism; Z79.01 Long term (current) use of anticoagulants; Z82.49 Family history of ischemic heart disease and other diseases of the circulatory system; Z88.1 Allergy status to other antibiotic agents; Z88.0 Allergy status to penicillin; Z88.2 Allergy status to sulfonamides
CPT/HCPCS: 59025; 81001; 82565; 82570; 83615; 84156; 84450; 84460; 84520; 84550; 85025; 85610; 85730; 86850; 86900; 86901; 99213

== ENCOUNTER → 2022-11-01 | Outpatient (CLI) | payer BC | END | disposition home or self-care (01) | LOC: LABWHC1 15:47 | PROVIDERS: ATTEND Obstetrics & Gynecology | DX: N91.2 Amenorrhea, unspecified (principal) | CPT/HCPCS: 36415; 84702 ==

== ENCOUNTER → 2024-04-12 | Outpatient (CLI) | payer BC ==
[2024-04-12 15:11] LABS: Basophils # (A) 0.07 X 10*3/uL (0.00-0.10); Eosinophils # (A) 0.21 X 10*3/uL (0.04-0.35); Eosinophils % (A) 2.9 %; HCT 40.7 % (37.2-46.3); HGB 13.4 g/dL (12.0-15.0); Lymphocytes # (A) 2.11 X 10*3/uL (0.90-5.00); Lymphocytes % (A) 29.3 %; MCHC 32.9 g/dL (32.0-37.0); MCV 91.1 FL (80.0-97.0); Mean Platelet Volume 10.1 FL (9.5-12.2); Monocytes # (A) 0.53 X 10*3/uL (0.20-1.00); Monocytes % (A) 7.4 %; NRBC Per 100 WBC 0 X 10*3/uL (0.00-0.01); Neutrophils # (A) 4.26 X 10*3/uL (1.80-7.70); Neutrophils % (A) 59.1 %; Platelet Count 278 X 10*3/uL (140-440); RBC 4.47 X 10*6/uL (4.10-5.20)
== END | disposition home or self-care (01) ==
LOC: LABPAT 10:31
PROVIDERS: ATTEND Obstetrics & Gynecology
DX: Z01.818 Encounter for other preprocedural examination (principal)
CPT/HCPCS: 36415; 85025

== ENCOUNTER 2024-04-19 10:25 | Day surgery (SDC) | payer BC ==
--- NOTE | 2024-04-19 09:37 | P.HPOB ---
History of Present Illness H&P Date: 04/19/24 Chief Complaint: family planning 28 year old presents for laparoscopic tubal ligation. Review of Systems All systems: negative Constitutional: Denies chills, Denies fever Eyes: denies blurred vision, denies pain Ears, nose, mouth and throat: Denies headache, Denies sore throat Cardiovascular: Denies chest pain, Denies shortness of breath Respiratory: Denies cough Gastrointestinal: Denies abdominal pain, Denies diarrhea, Denies nausea, Denies vomiting Genitourinary: Denies dysuria, Denies hematuria Musculoskeletal: Denies myalgias Integumentary: Denies pruritus, Denies rash Neurological: Denies numbness, Denies weakness Psychiatric: Denies anxiety, Denies depression Endocrine: Denies fatigue, Denies weight change Past Medical History Past Medical History: Asthma, Pulmonary Embolus (PE) Additional Past Medical History / Comment(s): PCOS, PE w/last , m iscarriage, mild sore throat currently -to let office know. History of Any Multi-Drug Resistant Organisms: None Reported Past Surgical History: Cholecystectomy, Ear Surgery Additional Past Surgical History / Comment(s): wisdom teeth removed 2013, D and C Past Anesthesia/Blood Transfusion Reactions: No Reported Reaction Smoking Status: Never smoker - Past Family History Father Family Medical History: Diabetes Mellitus, Hyperlipidemia, Hypertension Mother Family Medical History: Hypertension, Rheumatoid Arthritis (RA) Medications and Allergies Home Medications Medication Instructions Recorded Confirmed Type Albuterol Inhaler [Ventolin Hfa 2 puff INHALATION RT-Q6H PRN 10/03/15 04/15/24 History Inhaler] Alessio Vitamin 1 tab PO DAILY 04/15/24 04/15/24 History medroxyPROGESTERone [Depo-Provera] 150 mg IM Q90D 04/15/24 04/15/24 History metFORMIN HCL [Metformin HCl] 500 mg PO TID 04/15/24 04/15/24 History Allergies Allergy/AdvReac Type Severity Reaction Status Date / Time cefuroxime axetil Allergy Unknown Verified 04/15/24 15:12 [From Ceftin] Penicillins Allergy Rash/Hives Verified 04/15/24 15:12 red dye Allergy Rash/Hives Verified 04/15/24 15:12 sulfamethoxazole Allergy Rash/Hives Verified 04/15/24 15:12 [From Septra] trimethoprim [From Septra] Allergy Rash/Hives Verified 04/15/24 15:12 levofloxacin [From Levaquin] AdvReac Unknown Verified 04/15/24 15:12 Exam Osteopathic Statement: *. No significant issues noted on an osteopathic structural exam other than those noted in the History and Physical/Consult. Heart: Regular rate and rhythm Lungs: Clear to auscultation bilaterally Abdomen: Soft, nontender Extremities: Negative Homans sign Assessment and Plan (1) Family planning Status: Acute Code(s): Z30.09 - ENCOUNTER FOR OTH GENERAL CNSL AND ADVICE ON CONTRACEPTION SNOMED Code(s): 565422088 Plan: laparoscopic tubal ligation
[~2024-04-19 10:25] MED LIST changes: -LACTATED RINGERS 1,000 ML IV SCH; +LIDOCAINE 1% (10MG/ML) FOR IV START INTRADERMA PRN; -LIDOCAINE 1% 20 ML VIAL (10MG/ML) FOR IV START INTRADERMA PRN; +Pre Op ABX Message 1 EACH MISC MISCELLANE ONE; +droPERidol 5 MG/2 ML VIAL IVP ONE
[2024-04-19] MEDS: IV FLUID CONTINUATION 1,000 ML IV ONE ×2 (11:09→13:50)
[2024-04-19 11:10] LABS: Glucose,Whole Blood 87 mg/dL (70-110)
[2024-04-19] MEDS: LACTATED RINGERS 1,000 ML IV SCH (11:10)
[2024-04-19] MEDS: FAMOTIDINE 20 MG/2 ML VIAL IV STA (11:14)
[2024-04-19] MEDS: ONDANSETRON 4 MG/2 ML VIAL IVP ONE (11:14)
[2024-04-19] MEDS: DEXAMETHASONE SOD PHOSPHATE 4 MG/ML 1 ML VIAL IV ONE (11:14)
[2024-04-19] MEDS ORDERED: SUCCINYLCHOLINE CHLORIDE 200 MG/10 ML VIAL IV ONE (12:08)
[2024-04-19] MEDS ORDERED: ROCURONIUM 10 MG/ML (5 ML VIAL) IV ONE (12:08)
[2024-04-19] MEDS ORDERED: GLYCOPYRROLATE 0.2 MG/ML 2 ML VIAL ONE (12:08)
[2024-04-19] MEDS ORDERED: fentaNYL (PF) 50 MCG/ML 2 ML AMP ONE (12:08)
[2024-04-19] MEDS ORDERED: PROPOFOL 10 MG/ML 20 ML VIAL IV ONE (12:08)
[2024-04-19] MEDS ORDERED: LIDOCAINE 1% INJ 10MG/ML (20 ML MDV) ONE (12:08)
[2024-04-19] MEDS ORDERED: NEOSTIGMINE 1 MG/ML 10 ML VIAL ONE (12:08)
[2024-04-19] MEDS ORDERED: KETOROLAC 15 MG/ML 1 ML VIAL ONE (12:08)
[2024-04-19] MEDS ORDERED: MIDAZOLAM 2 MG/2 ML VIAL ONE (12:08)
[2024-04-19] MEDS ORDERED: ACETAMINOPHEN IV (For NPO) 1,000 MG/100 ML VIAL ONE (12:08)
[2024-04-19] MEDS: BUPIVACAINE (PF) 0.25% 30 ML VIAL SQ ONE ×2 (12:35)
--- NOTE | 2024-04-19 12:49 | P.OP ---
Date of Procedure: 04/19/24 Preoperative Diagnosis: 1. family planning Postoperative Diagnosis: 1. family planning Procedure(s) Performed: laparoscopic tubal ligation Anesthesia: ROBERTO Surgeon: Sari Kern Estimated Blood Loss (ml): 1 IV fluids (ml): 500 Urine output (ml): 30 Pathology: none sent Condition: stable Disposition: PACU Operative Findings: normal uterus, tubes, ovaries. Description of Procedure: Patient was taken to the operating room where general anesthesia was obtained without difficulty. She was prepped and draped in normal sterile fashion in the dorsal lithotomy position, legs placed in the Garret stirrups. Bladder drained of all urine. Sylmar speculum placed in the vagina and the anterior lip the cervix was grasped with single-tooth tenaculum. The uterus is sounded to 8 cm and the kroner manipulator was placed. Attention was then turned to the abdomen and gloves were changed. A 10 mm infraumbilical incision was made the scalpel and 10 mm optical trocar was placed under direct visualization. A 5 mm suprapubic Incision was made and a 5 mm optical trocar was placed under direct visualization. Survey of the pelvis revealed normal uterus tubes and ovaries. The left fallopian tube was grasped with a Kleppinger and fulgurated 2-3 cm on this side in the ampullar portion. The right fallopian tube was grasped with a Kleppinger and fulgurated 2-3 cm in the ampullar portion. All instruments were then removed from the abdomen and vagina. The 10 mm infraumbilical incision was closed with 0 Vicryl and the fascial layer and then 4-0 Vicryl in a subcuticular fashion. The 5 mm incision was closed with 4-0 Vicryl in a subcuticular fashion. Patient tolerated procedure well, sponge and instrument counts correct 2 and she was taken to recovery room in stable condition.
[2024-04-19 13:06] VITALS: TEMP 97.6
[2024-04-19 13:10] LABS: Glucose,Whole Blood 92 mg/dL (70-110)
[2024-04-19] MEDS: HYDROmorphone 0.5 MG/0.5 ML SYRINGE IVP PRN (13:32)
[2024-04-19 14:40] VITALS: RESP 18
[2024-04-19 14:58] VITALS: BP 102/69; PULSE 95
== END 2024-04-19 15:17 | disposition home or self-care (01) ==
LOC: OR 10:25
PROVIDERS: ATTEND Obstetrics & Gynecology
DX: Z30.02 Counseling and instruction in natural family planning to avoid pregnancy (principal); J45.909 Unspecified asthma, uncomplicated; G47.33 Obstructive sleep apnea (adult) (pediatric); Z86.711 Personal history of pulmonary embolism; Z90.49 Acquired absence of other specified parts of digestive tract; Z83.3 Family history of diabetes mellitus; Z82.49 Family history of ischemic heart disease and other diseases of the circulatory system; Z83.49 Family history of other endocrine, nutritional and metabolic diseases; Z88.1 Allergy status to other antibiotic agents; Z88.0 Allergy status to penicillin; Z88.2 Allergy status to sulfonamides; Z79.84 Long term (current) use of oral hypoglycemic drugs; Z79.3 Long term (current) use of hormonal contraceptives
CPT/HCPCS: 58670; J1100; J2405; J3490; J1171; J0665

== ENCOUNTER 2024-09-14 09:50 | Emergency (ER) | payer BC ==
[2024-09-14 09:55] VITALS: RESP 20
--- NOTE | 2024-09-14 10:26 | ED ---
Nausea/Vomiting/Diarrhea HPI - General Chief complaint: Nausea/Vomiting/Diarrhea Stated complaint: NVD Time Seen by Provider: 09/14/24 09:59 Source: patient, RN notes reviewed Mode of arrival: ambulatory Limitations: no limitations - History of Present Illness Initial comments: This is a 28-year-old female who presents to the emergency department for nish sea, vomiting, and diarrhea. States that it started 2 days ago. The diarrhea is constant, more times than she can count. She tried taking [id number] Imodium, but states that it was not effective and she started to have nausea and vomiting and has been unable to keep it down. She has generalized cramping in her abdomen from all of the vomiting. She does still feel nauseous. Denies any fevers/chills or sick contacts. States that her muscles are also cramping. MD complaint: nausea, vomiting, diarrhea - Related Data Home Medications Medication Instructions Recorded Confirmed Albuterol Inhaler [Ventolin Hfa 2 puff INHALATION RT-Q6H PRN 10/03/15 04/19/24 Inhaler] Alessio Vitamin 1 tab PO DAILY 04/15/24 04/19/24 medroxyPROGESTERone [Depo-Provera] 150 mg IM Q90D 04/15/24 04/19/24 metFORMIN HCL [Metformin HCl] 500 mg PO TID 04/15/24 04/19/24 Previous Rx's Medication Instructions Recorded Dicyclomine [Bentyl] 20 mg PO QID PRN #30 tablet 09/14/24 Ondansetron Odt [Zofran Odt] 4 mg PO Q8HR PRN #20 tab 09/14/24 Prochlorperazine [Compazine] 10 mg PO Q6H PRN #20 tab 09/14/24 Allergies Allergy/AdvReac Type Severity Reaction Status Date / Time cefuroxime axetil Allergy Unknown Verified 09/14/24 09:55 [From Ceftin] Penicillins Allergy Rash/Hives Verified 09/14/24 09:55 red dye Allergy Rash/Hives Verified 09/14/24 09:55 sulfamethoxazole Allergy Rash/Hives Verified 09/14/24 09:55 [From Septra] trimethoprim [From Septra] Allergy Rash/Hives Verified 09/14/24 09:55 levofloxacin [From Levaquin] AdvReac Unknown Verified 09/14/24 09:55 Review of Systems ROS Statement: Those systems with pertinent positive or pertinent negative responses have been documented in the HPI. ROS Other: All systems not noted in ROS Statement are negative. Past Medical History Past Medical History: Asthma, Pulmonary Embolus (PE) Additional Past Medical History / Comment(s): PCOS, PE w/last , miscarriage History of Any Multi-Drug Resistant Organisms: None Reported Past Surgical History: Cholecystectomy, Ear Surgery, Tubal Ligation Additional Past Surgical History / Comment(s): wisdom teeth removed 2013, D and C Past Anesthesia/Blood Transfusion Reactions: No Reported Reaction Past Psychological History: No Psychological Hx Reported Smoking Status: Never smoker - Past Family History Father Family Medical History: Diabetes Mellitus, Hyperlipidemia, Hypertension Mother Family Medical History: Hypertension, Rheumatoid Arthritis (RA) General Exam Limitations: no limitations General appearance: alert, in no apparent distress Head exam: Present: atraumatic, normocephalic, normal inspection Respiratory exam: Present: normal lung sounds bilaterally. Absent: respiratory distress, wheezes, rales, rhonchi, stridor Cardiovascular Exam: Present: regular rate, normal rhythm GI/Abdominal exam: Present: soft, normal bowel sounds. Absent: distended, tenderness, guarding, rebound, rigid Neurological exam: Present: alert, oriented X3, CN II-XII intact Psychiatric exam: Present: normal affect, normal mood Skin exam: Present: warm, dry, intact, normal color. Absent: rash Course Vital Signs 09/14/24 09/14/24 09:53 13:47 Temperature 98.1 F 98.4 F Pulse Rate 105 H 86 Respiratory 20 20 Rate Blood Pressure 133/10 107/60 O2 Sat by Pulse 96 100 Oximetry Medical Decision Making - Medical Decision Making This is a 28 year old female who presents to the emergency department for nausea and vomiting. Was pt. sent in by a medical professional or institution? @ -No Did you speak to anyone other than the patient for history? @ -No Did you review nursing and triage notes? @ -Yes, and I agree, it is accurate with regards to the patient's symptoms. Were old charts reviewed? @ -No Differential Diagnosis? @ -Differential Nausea and Vomiting: Gastroenteritis, cholecystitis, appendicitis, pancreatitis, migraine, benign positional vertigo, food borne illness, pyelonephritis, irritable bowel syndrome, influenza, Covid, GERD, incarcerated hernia, intestinal obstruction, this is not meant to be an all-inclusive list. EKG interpreted by me (3pts min.)? @ -Not obtained X-rays interpreted by me (1pt min.)? @ -Not obtained CT interpreted by me (1pt min.)? @ -Not obtained U/S interpreted by me (1pt. min.)? @ -Ultrasound of the liver obtained. My interpretation identifies fatty liver disease. What testing was considered but not performed? (CT, X-rays, U/S, labs)? Why? @ -None What meds were considered but not given? Why? @ -None Did you discuss the management of the patient with other professionals? @ -No Did you reconcile home meds? @ -No Was smoking cessation discussed for >3mins.? @ -No Was critical care preformed (if so, how long)? @ -No Were there social determinants of health that impacted care today? How? (Homelessness, low income, unemployed, alcoholism, drug addiction, transportation, low edu. Level, literacy, decrease access to med. care, half-way, rehab)? @ -No Was there de-escalation of care discussed even if they declined? (Discuss DNR or withdrawal of care, Hospice)? @ -No What co-morbidities impacted this encounter? (DM, HTN, Smoking, COPD, CAD, Cancer, CVA, Hep., AIDS, mental health diagnosis, sleep apnea, morbid obesity)? @ -None Was patient admitted / discharged? @ -Discharged. Lab work demonstrates mildly elevated LFTs and is otherwise unremarkable. Heterophile negative. Urinalysis negative for signs of infection. Ultrasound of the liver obtained demonstrating hepatic steatosis without other acute process. Patient treated with IV fluids, antiemetics, and Bentyl with improvement in symptoms. The elevated LFTs could be related to the hepatic steatosis or generalized illness, however hepatitis panel was ordered with results pending at the time of discharge. Compazine, Zofran, and Bentyl prescribed for further symptomatic management. Advised follow-up with her PCP in the next couple of days to reevaluate symptoms and we also discussed that she may need repeat blood work to see if her liver enzymes improved. Patient discharged home in stable condition. Case discussed with ED attending, Dr. Duggan. Return precautions reviewed in depth, the patient is instructed to return to the emergency department with any new, worsening, or concerning symptoms. Patient verbalized understanding. Undiagnosed new problem with uncertain prognosis? @ -None Drug Therapy requiring intensive monitoring for toxicity (Heparin, Nitro, Insulin, Cardizem)? @ -None Were any procedures done? @ -None Diagnosis/symptom? @ -Gastroenteritis Acute, or Chronic, or Acute on Chronic? @ -Acute Uncomplicated (without systemic symptoms) or Complicated (systemic symptoms)? @ -Uncomplicated Side effects of treatment? @ -None Exacerbation, Progression, or Severe Exacerbation] @ -Not applicable Poses a threat to life or bodily function? @ -No - Lab Data Result diagrams: 09/14/24 10:24 09/14/24 10:24 Lab Results 09/14/24 09/14/24 09/14/24 Range/Units 10:24 10:24 10:24 WBC 8.20 (4.50-10.00) 10*3/uL RBC 5.49 H (4.10-5.20) 10*6/uL Hgb 17.0 H (12.0-15.0) g/dL Hct 47.3 H (37.2-46.3) % MCV 86.2 (80.0-97.0) fL MCH 31.0 (27.0-32.0) pg MCHC 35.9 (32.0-37.0) g/dL Plt Count 289 (140-440) 10*3/uL MPV 10.5 (9.5-12.2) fL Immature Gran % (Auto) 0.2 % Neutrophils % 78.7 % Lymphocytes % 10.5 % Monocytes % 7.8 % Eosinophils % 2.4 % Basophils % 0.4 % Immature Gran # 0.02 (0.00-0.04) 10*3/uL Neutrophils # 6.45 (1.80-7.70) 10*3/uL Lymphocytes # 0.86 L (0.90-5.00) 10*3/uL Monocytes # 0.64 (0.20-1.00) 10*3/uL Eosinophils # 0.20 (0.04-0.35) 10*3/uL Basophils # 0.03 (0.00-0.10) 10*3/uL Sodium 142 (137-145) mmol/L Potassium 3.5 (3.5-5.1) mmol/L Chloride 105 (98-107) mmol/L Carbon Dioxide 22 (22-30) mmol/L Anion Gap 15 mmol/L BUN 16 (7-17) mg/dL Creatinine 0.78 (0.52-1.04) mg/dL Est GFR (CKD-EPI)AfAm >90 (>60 ml/min/1.73 sqM) Est GFR (CKD-EPI)NonAf >90 (>60 ml/min/1.73 sqM) Glucose 103 H (74-99) mg/dL Calcium 9.9 (8.4-10.2) mg/dL Magnesium 1.8 (1.6-2.3) mg/dL Total Bilirubin 1.2 (0.2-1.3) mg/dL AST 190 H (14-36) U/L ALT 213 H (4-34) U/L Alkaline Phosphatase 123 (38-126) U/L Total Protein 8.8 H (6.3-8.2) g/dL Albumin 5.3 H (3.5-5.0) g/dL Lipase 189 (23-300) U/L HCG, Qual Not Detected Urine Color Urine Appearance (Clear) Urine pH (5.0-8.0) Ur Specific Dalton (1.001-1.035) Urine Protein (Negative) Urine Glucose (UA) (Negative) Urine Ketones (Negative) Urine Blood (Negative) Urine Nitrite (Negative) Urine Bilirubin (Negative) Urine Urobilinogen (<2.0) mg/dL Ur Leukocyte Esterase (Negative) Urine RBC (0-5) /hpf Urine WBC (0-5) /hpf Ur Squamous Epith Cells (0-4) /hpf Urine Mucus (None) /hpf Hepatitis A IgM Ab (Nonreactive) Hep Bs Antigen (Nonreactive) Hep B Core IgM Ab (Nonreactive) Hep C IgG Ab (Nonreactive) Heterophile Antibody Negative (Negative) 09/14/24 09/14/24 Range/Units 10:24 13:04 WBC (4.50-10.00) 10*3/uL RBC (4.10-5.20) 10*6/uL Hgb (12.0-15.0) g/dL Hct (37.2-46.3) % MCV (80.0-97.0) fL MCH (27.0-32.0) pg MCHC (32.0-37.0) g/dL Plt Count (140-440) 10*3/uL MPV (9.5-12.2) fL Immature Gran % (Auto) % Neutrophils % % Lymphocytes % % Monocytes % % Eosinophils % % Basophils % % Immature Gran # (0.00-0.04) 10*3/uL Neutrophils # (1.80-7.70) 10*3/uL Lymphocytes # (0.90-5.00) 10*3/uL Monocytes # (0.20-1.00) 10*3/uL Eosinophils # (0.04-0.35) 10*3/uL Basophils # (0.00-0.10) 10*3/uL Sodium (137-145) mmol/L Potassium (3.5-5.1) mmol/L Chloride (98-107) mmol/L Carbon Dioxide (22-30) mmol/L Anion Gap mmol/L BUN (7-17) mg/dL Creatinine (0.52-1.04) mg/dL Est GFR (CKD-EPI)AfAm (>60 ml/min/1.73 sqM) Est GFR (CKD-EPI)NonAf (>60 ml/min/1.73 sqM) Glucose (74-99) mg/dL Calcium (8.4-10.2) mg/dL Magnesium (1.6-2.3) mg/dL Total Bilirubin (0.2-1.3) mg/dL AST (14-36) U/L ALT (4-34) U/L Alkaline Phosphatase (38-126) U/L Total Protein (6.3-8.2) g/dL Albumin (3.5-5.0) g/dL Lipase (23-300) U/L HCG, Qual Urine Color Yellow Urine Appearance Clear (Clear) Urine pH 6.0 (5.0-8.0) Ur Specific Dalton 1.033 (1.001-1.035) Urine Protein 1+ H (Negative) Urine Glucose (UA) Negative (Negative) Urine Ketones 2+ H (Negative) Urine Blood Trace H (Negative) Urine Nitrite Negative (Negative) Urine Bilirubin 1+ H (Negative) Urine Urobilinogen <2.0 (<2.0) mg/dL Ur Leukocyte Esterase Negative (Negative) Urine RBC 1 (0-5) /hpf Urine WBC 3 (0-5) /hpf Ur Squamous Epith Cells 5 H (0-4) /hpf Urine Mucus Many H (None) /hpf Hepatitis A IgM Ab Nonreactive (Nonreactive) Hep Bs Antigen Nonreactive (Nonreactive) Hep B Core IgM Ab Nonreactive (Nonreactive) Hep C IgG Ab Nonreactive (Nonreactive) Heterophile Antibody (Negative) - Radiology Data Radiology results: report reviewed, image reviewed Disposition Clinical Impression: Gastroenteritis Disposition: HOME SELF-CARE Instructions (If sedation given, give patient instructions): Acute Nausea and Vomiting (ED), Acute Diarrhea (ED) Additional Instructions: Return to the emergency department with any new, worsening, or concerning symptoms. Take the Zofran up to every 8 hours as needed for nausea and vomiting. Take the Compazine up to every 6 hours as needed for nausea and vomiting. You can take the Bentyl up to 4 times daily to help with abdominal cramping and diarrhea. Slowly advance your diet as tolerated and remain well- hydrated. Follow up with your primary care provider in 1-2 days. Prescriptions: Dicyclomine [Bentyl] 20 mg PO QID PRN #30 tablet PRN Reason: Gi Upset Prochlorperazine [Compazine] 10 mg PO Q6H PRN #20 tab PRN Reason: Nausea And Vomiting Ondansetron Odt [Zofran Odt] 4 mg PO Q8HR PRN #20 tab PRN Reason: Nausea And Vomiting Is patient prescribed a controlled substance at d/c from ED?: No Referrals: Ozzy Meneses MD [Primary Care Provider] - 1-2 days Time of Disposition: 13:29
[2024-09-14 10:33] LABS: Basophils # (A) 0.03 10*3/uL (0.00-0.10); Basophils % (A) 0.4 %; Eosinophils % (A) 2.4 %; HCT 47.3 % (37.2-46.3); Lymphocytes # (A) 0.86 10*3/uL (0.90-5.00); Lymphocytes % (A) 10.5 %; MCHC 35.9 g/dL (32.0-37.0); MCV 86.2 fL (80.0-97.0); Mean Platelet Volume 10.5 fL (9.5-12.2); Monocytes # (A) 0.64 10*3/uL (0.20-1.00); Monocytes % (A) 7.8 %; Neutrophils # (A) 6.45 10*3/uL (1.80-7.70); Neutrophils % (A) 78.7 %; Platelet Count 289 10*3/uL (140-440); RBC 5.49 10*6/uL (4.10-5.20); RDW 12.3 % (11.5-14.5)
[2024-09-14] MEDS: SODIUM CHLORIDE 0.9% 1,000 ML IV STA (10:37)
[2024-09-14] MEDS: FAMOTIDINE 20 MG/2 ML VIAL IV STA (10:38)
[2024-09-14] MEDS: DICYCLOMINE 10 MG/ML 2 ML AMP IM STA (10:38)
[2024-09-14] MEDS: ONDANSETRON 4 MG/2 ML VIAL IVP STA (10:38)
[2024-09-14 10:46] LABS: HCG,Qualitative Serum Not Detected
[2024-09-14 11:23] LABS: ALT 213 U/L (4-34); AST 190 U/L (14-36); African American GFR (CKD) >90 (>60 ml/min/1.73 sqM); Albumin 5.3 g/dL (3.5-5.0); Alkaline Phosphatase 123 U/L (38-126); Anion Gap 15 mmol/L; Blood Urea Nitrogen 16 mg/dL (7-17); Calcium 9.9 mg/dL (8.4-10.2); Carbon Dioxide 22 mmol/L (22-30); Chloride 105 mmol/L (98-107); Glucose 103 mg/dL (74-99); Lipase 189 U/L (23-300); Magnesium 1.8 mg/dL (1.6-2.3); Non-African American GFR(CKD) >90 (>60 ml/min/1.73 sqM); Potassium 3.5 mmol/L (3.5-5.1); Sodium 142 mmol/L (137-145); Total Bilirubin 1.2 mg/dL (0.2-1.3); Total Protein 8.8 g/dL (6.3-8.2)
[2024-09-14] MEDS: METOCLOPRAMIDE 5 MG/ML 2 ML VIAL IVP STA (11:54)
[2024-09-14] MEDS: SODIUM CHLORIDE 0.9% 1,000 ML IV ONE (11:55)
--- NOTE | 2024-09-14 12:17 | US ---
EXAMINATION TYPE: US liver DATE OF EXAM: 09/14/2024 COMPARISON: Abdominal ultrasound 10/03/2015 CLINICAL INDICATION: Female, 28 years old with history of Elevated LFTs, abdominal pain; Diarrhea, to ok immodium and starting throwing up. Upper abdominal pain. TECHNIQUE: Grayscale and color Doppler imaging of the right upper quadrant was performed. FINDINGS: EXAM MEASUREMENTS: Liver Length: 16.4 cm Gallbladder Wall: Surgically absent cm CBD: Unable to identify cm Right Kidney: 12.0 x 5.2 x 5.7 cm REPATCHER NOTES:Difficult exam due to overlying bowel gas Pancreas: Tail obscured by overlying bowel gas Liver: Increased attenuation; obscured by bowel gas Gallbladder: Surgically absent CBD: Obscured by overlying bowel gas Right Kidney: wnl The visualized portions of the pancreas unremarkable. Diffuse increased attenuation liver without foc al lesion. Gallbladder surgically absent. The common bile duct is obscured by overlying bowel gas. Th e right kidney demonstrates no hydronephrosis, solid mass or shadowing calculus. IMPRESSION: Limited examination due to overlying bowel gas. 1. No ultrasound evidence for acute process. 2. Hepatic steatosis. [facility], , 09/14/2024 12:15 PM
[2024-09-14] MEDS: PROCHLORPERAZINE INJ 10 MG/2 ML VIAL IVP STA (13:00)
[2024-09-14 13:27] LABS: Appearance,Urine Clear (Clear); Bilirubin,Urine 1+ (Negative); Blood,Urine Trace (Negative); Color,Urine Yellow; Glucose,Urine (UA) Negative (Negative); Ketones,Urine 2+ (Negative); Leukocyte Esterase,Urine Negative (Negative); Mucus,Urine Many /hpf; Nitrite,Urine Negative (Negative); Protein,Urine 1+ (Negative); RBC,Urine 1 /hpf (0-5); Specific Gravity,Urine 1.033 (1.001-1.035); Squamous Epithelial Cell,Urine 5 /hpf (0-4); Urobilinogen,Urine <2.0 mg/dL (<2.0); WBC,Urine 3 /hpf (0-5)
[2024-09-14] MEDS: DIPHENOX-ATROP STARTER PACK 8 TAB BTL PO STA (13:43)
[2024-09-14 13:49] VITALS: BP 107/60; PULSE 86; TEMP 98.4
[2024-09-14 15:26] LABS: Hepatitis A Antibody IgM Nonreactive (Nonreactive); Hepatitis B Core IgM Nonreactive (Nonreactive); Hepatitis B Surface Antigen Nonreactive (Nonreactive); Hepatitis C IgG Antibody Nonreactive (Nonreactive)
== END 2024-09-14 13:49 | disposition home or self-care (01) ==
LOC: EC 09:50
DX: K52.9 Noninfective gastroenteritis and colitis, unspecified (principal); Z88.0 Allergy status to penicillin; Z88.1 Allergy status to other antibiotic agents; Z88.2 Allergy status to sulfonamides; Z88.8 Allergy status to other drugs, medicaments and biological substances
CPT/HCPCS: 36415; 80053; 80074; 83690; 83735; 85025; 86308; 81001; 84703; 76705; 99284; 96374; 96375; 96361 ×2; 96372; J0500; J0780; J2765; J2405; J1308